=== PATIENT | male | born 1940 | race Caucasian/White ===

== ENCOUNTER 2017-02-16 12:56 | Observation (INO) ==
--- NOTE | 2017-02-16 13:13 | EKG Report ---
Stationary ECG Study [facility] ER Test Date: 02/16/2017 1:04:36 PM Pat Name: SONYA RUFF Department: Room: Gender: M Anesthesiology Tech: Ofelia Cornejo : 1940 Requested by: Hero Schwarz Order Number: [id number] Reading MD: ELPIDIO NAVA Intervals [place] Rate: 72 P: 74 IA: 186 QRS: -62 QRSD: 110 T: 60 QT: 373 QTc: 397 Interpretive Statements SINUS RHYTHM LEFT ANTERIOR FASCICULAR BLOCK Electronically Signed On 02-16-17 13:59:56 CDT by ELPIDIO NAVA [email or web address]
[2017-02-16 13:21] LABS: Basophils % 0.2 % (0.0-0.8); Eosinophils # 0.2 10*3/uL (0.0-0.87); Eosinophils % 3.7 % (0.00-10.9); Hematocrit 39.3 VOL% (42.0-52.0); Immature Granulocytes % 0.5 %; Immature Granulocytes Absolute 0.03 #; Lymphocytes # 1.5 10*3/uL (1.4-4.0); Lymphocytes % 25.8 % (21.2-54.2); Mean Corpuscular HGB Conc 35.6 GM/DL (32-36); Mean Corpuscular Hemoglobin 31 PG (27-34); Mean Corpuscular Volume 87.1 FL (87-102); Mean Platelet Volume 10.2 FL (9.6-12.0); Monocytes # 0.6 10*3/uL (0.11-0.8); Monocytes % 10.1 % (1.7-12.7); Neutrophils # 3.6 10*3/uL (1.4-7.4); Neutrophils % 59.7 % (38.7-73.9); Platelet Count 147 T/CUMM (130-400); Red Blood Count 4.51 MC/CUMM (3.8-5.5); Red Cell Distribution Width 12.5 % (9.3-17.3)
[2017-02-16 13:56] LABS: Alanine Aminotransferase 25 U/L (16-61); Alkaline Phosphatase 68 U/L (45-117); Amylase 21 U/L (25-115); Aspartate Amino Transferase 20 U/L (0-37); Blood Urea Nitrogen 18 MG/DL (7-18); Calcium 9.5 MG/DL (8.5-10.1); Glucose 147 MG/DL (74-106); Osmolality,Calculated 283.4 MOS/KG (273-304); Potassium 4.1 MMOL/L (3.5-5.1); Sodium 140 MMOL/L (136-145); Total Protein 7.7 G/DL (6.4-8.3)
--- NOTE | 2017-02-16 14:01 | XRay Report ---
Exam: XR chest 2V Indication: Midline chest pain Comparison study: Prior chest radiograph 11/21/2011 Findings: The heart, mediastinum, and bony structures are within normal limits. The heart, mediastinum and bony structures are stable from prior. Punctate calcific densities in the hilar regions bilaterally are similar to prior and most compatible with sequela of prior granulomatous disease. Mild eventration of the central right hemidiaphragm is slightly increased from prior. There is no focal consolidation, pneumothorax or pleural effusion identified. Impression: No acute cardiopulmonary process. Evidence of prior granulomatous disease. PROCEDURE INTERPRETED AT [facility] DEPARTMENT OF RADIOLOGY Final Report Signed by: Toño Randall
--- NOTE | 2017-02-16 15:17 | Emergency Department Note ---
Ivy Grace Hilary, am scribing for, and in the presence of, Elissa Pablo DO 14: 49. ISamy Debra, DO, personally performed the services described in this documentation, ascribed by Tere Haynes in my presence, and it is both accurate and complete 517 . Arrival - Arrival Chief Complaint: Chest Pain Stated Complaint: chest pain ED Nursing Triage Note: Pt c/o Chest pain started today. States he has been having some upper abd/epigastric pain but today was up in his chest. Mode of Arrival: Ambulatory Limitations: No Limitations Source: Patient, RN Notes Reviewed - History of Present Illness HPI Narrative: Pt is a 76 y/o male presenting to the ED with c/o chest pain which onset today. Pt states that he has been having epigastrium pain intermittently for a few weeks but today it radiated up into his chest. He reports the pain was severe but it is now resolved. No other complaints or problems stated in the ED. Onset (ago): hour(s) Consistency: intermittent, now resolved Severity: severe Severity scale (1-10): 5 Allergies/Adverse Reactions: Allergies Allergy/AdvReac Type Severity Reaction Status Date / Time midazolam [From Versed] Allergy Unknown/Unable Verified 02/16/17 12:58 to obtain Review of System - Review of System 12 point system: reviewed and no additional remarkable complaints except as stated - Review of System Constitutional: Absent: fever Cardiovascular: Present: chest pain Gastrointestinal: Present: abdominal pain, nausea Medical,Surgical,& Family Hx - Medical History Cardio: History of: CAD, Hypertension Endocrine: History of: Diabetes Mellitus (NIDDM) - Surgical History Cardiac Surgeries: Sugical HX of: Cardiac Catheterization (stent Dr Morris ) Abdominal Surgeries: Surgical HX of: Cholecystectomy - Social History Smoking Status: Never smoker Exam Vital Signs: Vital Signs Temperature 97.9 F 02/16/17 14:30 Pulse Rate 90 02/16/17 14:30 Respiratory Rate 20 02/16/17 14:30 Blood Pressure 151/86 02/16/17 14:30 O2 Sat by Pulse Oximetry 94 L 02/16/17 14:23 - General General appearance: alert, in no apparent distress - Head Head exam: Present: atraumatic, normocephalic - Eye Eye exam: Present: normal appearance, PERRL, EOMI - ENT ENT exam: Present: mucous membranes moist, TM's normal bilaterally. Absent: mucous membranes dry - Neck Neck exam: Present: full ROM, trachea midline. Absent: tenderness - Chest Chest inspection: Present: symmetric chest wall rise. Absent: tenderness - Respiratory Respiratory exam: Present: normal lung sounds bilaterally. Absent: respiratory distress - Cardiovascular Cardiovascular exam: Present: regular rate, normal rhythm, normal heart sounds. Absent: murmur, rubs, gallop - Abdominal Exam Abdominal exam: Present: soft, normal bowel sounds. Absent: distention, tenderness - Extremities Exam Extremities exam: Present: full ROM. Absent: tenderness - Back Exam Back exam: Present: full ROM. Absent: tenderness - Neurological Exam Neurological exam: Present: alert, oriented X3, CN II-XII intact. Absent: motor sensory deficit - Psychiatric Psychiatric exam: Present: normal affect, normal mood - Skin Skin exam: Present: warm, dry, intact, normal color. Absent: rash Course - Reevaluation(s) Reevaluation #1: spoke with Dr Gupta's retail store associate who will admit pt to their service for rule out. pt is stable at this time Results - Labs CBC & BMP: 02/16/17 13:09 02/16/17 13:09 Lab Results: I have reviewed the patients labs Labs: Laboratory Tests 02/16/17 02/16/17 02/16/17 13:09 13:09 13:09 WBC 6.0 RBC 4.51 Hgb 14.0 Hct 39.3 L Plt Count 147 Sodium 140 Potassium 4.1 Chloride 104 Carbon Dioxide 26 BUN 18 Creatinine 1.40 H Glucose 147 H Troponin I < 0.015 Total Protein 7.7 Globulin 3.7 H Albumin/Globulin Ratio 1.0 L Amylase 21 L - EKG EKG results: interpreted by MILAD GALINDO - Diagnostic Findings Procedure: Chest x-ray: report reviewed by me (No acute cardiopulmonary process. Evidence of prior granulomatous disease. ) Disposition Clinical Impression: Chest pain Case discussed with: patient, patient's family Disposition: Still a Patient Condition: Stable Time of Disposition: 16:01
[2017-02-16] MEDS ORDERED: MAGNESIUM SULF RIDER 4 GM in PREMIX 1 EACH IV PRN ×2 (16:01→17:21)
[2017-02-16] MEDS ORDERED: MAGNESIUM SULF RIDER 2 GM in PREMIX 1 EACH IV PRN ×2 (16:01→17:21)
--- NOTE | 2017-02-16 16:55 | Cardiology History & Physical ---
<Mariel Chopra - Last Filed: 02/16/17 16:28> Assessment and Plan - Time spent with patient Time spent with patient: Greater than 30 minutes (1) Atypical chest pain Status: Acute Assessment and plan: SEE PLAN OF CARE LISTED BELOW Current Visit: Yes (2) Coronary artery disease Status: Chronic Assessment and plan: SEE PLAN OF CARE LISTED BELOW Current Visit: Yes (3) Easy fatigability Status: Acute Assessment and plan: SEE PLAN OF CARE LISTED BELOW Current Visit: Yes (4) Abdominal pain Status: Acute Assessment and plan: SEE PLAN OF CARE LISTED BELOW Current Visit: Yes (5) Dyslipidemia Status: Chronic Assessment and plan: SEE PLAN OF CARE LISTED BELOW Current Visit: Yes (6) Hypertension Status: Chronic Assessment and plan: SEE PLAN OF CARE LISTED BELOW Current Visit: Yes (7) 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 Valerio Morris Mr. Ramírez is a 76 year old male with known history of coronary artery disease, routinely followed by Dr. Valerio Morris. Patient has cardiac risk factors significant for hypertension, dyslipidemia and advanced age. Patient has past medical history of BPH and diverticulosis. Patient's most recent heart catheterization was performed January 2009 with PCI to proximal RCA, angioplasty to diagonal and a jet velocity to obtuse marginal. Ejection fraction was 55% at that time. Patient's most recent nuclear stress test was performed March 2015. This was a normal stress perfusion scan with no evidence of inducible ischemia. Normal left ventricular size with normal systolic thickening and normal systolic function. Patient was last seen in the cardiology clinic June 2016. At that time he was having no active complaints. Patient was in his usual state of health until earlier this morning when he developed sharp chest pain while at the stockyard. Tells me that this occurred at rest and had no exertional component. He describes this pain as a sharp pain located midsternally, then radiating to his right chest. Not associated with shortness of breath, nausea, diaphoresis or lightheadedness. Unable to identify any specific alleviating or aggravating factors. He rates his pain an 8 or 9 on a scale of 1-10. Lasted approximately 2 minutes without recurrence. He tells me that this was a different pain than when he underwent PCI to his RCA January 2009. This is not worsened with deep breathing or certain positions and not reproducible to palpation. He also confirms "stomach problems" intermediately over the past several months. He is unable to identify any specific triggers. Does not appear to worsen or get better with meals. No associated nausea or vomiting. Patient's symptomology was very concerning to him given his history of coronary artery disease. For that reason, he presented to the emergency department to be further evaluated. Of note, patient is extremely active person. He continues to work on the [employer]. 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 However, he does report that he tires out more easily and requires more rest breaks than usual over the last several months. Denies dyspnea on exertion, fever, chills, cough, nausea, vomiting, palpitations, orthopnea, PND and lower extremity swelling. Patient was seen and examined in the emergency department. Cardiac biomarkers have been negative 1 and EKG does not reveal any diagnostic changes. Chest x- ray does not reveal any acute cardiopulmonary processes. Patient's chest pain is very atypical in nature. Suspect GI etiology. Patient does have history of coronary artery disease. For this reason, patient will be admitted to cardiology's service and housed on the telemetry unit in order to rule out for myocardial infarction. Will continue to cycle cardiac biomarkers, EKGs and monitor telemetry. Will discuss with Dr. Gupta and await his additional recommendations. ASSESSMENT/PLAN: 1. ATYPICAL CHEST PAIN - Patient's chest pain is very atypical in nature. Suspect GI in nature. Cardiac biomarkers have been negative 1 and EKG does not reveal any diagnostic changes. Patient does have history of coronary artery disease. For this reason, patient will be admitted to cardiology's service and housed on the telemetry unit in order to rule out for myocardial infarction. Will continue to cycle cardiac biomarkers, EKGs and monitor telemetry. Will discuss with Dr. Gupta and await his additional recommendations. 2. HISTORY OF CAD, STATUS POST PCI TO RCA - As above. Continue beta-destiney, lipid-lowering agent and aspirin. 3. HYPERTENSION - Patient's home medications have been reinitiated. Will adjust as needed throughout his hospitalization. 4. DYSLIPIDEMIA - Lipid lowering agent will be continued. Lipid panel ordered. 5. COUGH DUE TO LINDSAY INHIBITOR - Per Dr. Morris's patient is intolerant to LINDSAY inhibitor due to cough. This will be avoided this hospitalization. 6. ABDOMINAL PAIN - Patient confirms abdominal pain intermittently over the past several months. This could very well be contributing to his atypical type chest pain. If patient rules out for myocardial infarction he may benefit from GI workup. I will order a KUB at this time. Will consider CT abdomen if needed. Patient does have history of diverticulosis. 7. EASY FATIGABILITY - Patient reports easy fatigability over the past several months. He has not had a recent echocardiogram in clinic. Most recent ejection fraction noted to be 55% per [facility] 2008. I will order echocardiogram at this time in order to reevaluate his LV function. Home Medications Medication Instructions Recorded Confirmed Type Aspirin 325 mg PO DAILY 02/16/17 02/16/17 History Carvedilol [Coreg] 3.125 mg PO BID 02/16/17 02/16/17 History Niacin 1,000 mg PO QPM 02/16/17 02/16/17 History Omeprazole 20 mg PO DAILY 02/16/17 02/16/17 History Oxybutynin Chloride [Oxybutynin 15 mg PO DAILY 02/16/17 02/16/17 History Chloride ER] Simvastatin 40 mg PO QPM 02/16/17 02/16/17 History Terazosin [Hytrin] 5 mg PO BEDTIME 02/16/17 02/16/17 History amLODIPine [Norvasc] 5 mg PO DAILY 02/16/17 02/16/17 History hydroCHLOROthiazide 12.5 mg PO DAILY 02/16/17 02/16/17 History [Hydrochlorothiazide] metFORMIN [Glucophage] 1,000 mg PO DAILY 02/16/17 02/16/17 History Allergies Allergy/AdvReac Type Severity Reaction Status Date / Time midazolam [From Versed] Allergy Unknown/Unable Verified 02/16/17 12:58 to obtain - Constitutional Constitutional: Present: fatigue, lethargy, weakness. Absent: chills, fever(s) , frequent falls, weight gain, weight loss - Cardiovascular Cardiovascular: Present: chest pain at rest. Absent: chest pain with activity, claudication, diaphoresis, dyspnea, dyspnea on exertion, edema, radiating jaw, neck or arm pain, lightheadedness, orthopnea, palpitations, PND - Respiratory Respiratory: Absent: cough, dyspnea, hemoptysis, dyspnea on exertion, wheezing, snoring, pain on inspiration, change in phlegm color - Gastrointestinal Gastrointestinal: Present: abdominal pain, bloating, cramping, heartburn. Absent: melena, nausea, vomiting - Neurological Neurological: Absent: abnormal gait, abnormal speech, behavioral changes, dizziness, frequent falls, numbness, paresthesias, syncope - Hematologic/Lymphatic Hematologic/Lymphatic: Absent: easy bleeding, easy bruising, lymphadenopathy Medical,Surgical,& Family Hx - Medical History Cardio: History of: CAD, Hypertension Endocrine: History of: Diabetes Mellitus (NIDDM), Dyslipidemia Genitourinary: History of: Prostate Problems (BPH) Gastrointestinal: History of: Diverticulitis/ Diverticulosis, GERD - Surgical History Cardiac Surgeries: Sugical HX of: Cardiac Catheterization (stent Dr Morris ) Abdominal Surgeries: Surgical HX of: Cholecystectomy - Social History Smoking Status: Never smoker Frequency of Alcohol Use: None Type of Drug Use: None Marital Status: Lives With:: Spouse Functional capacity: independent ambulation Cardiology Physical Exam - Constitutional Vitals: Vital Signs Temp Pulse Resp BP Pulse Ox 97.9 F 65 13 134/69 94 L 02/16/17 14:30 02/16/17 15:35 02/16/17 15:35 02/16/17 15:35 02/16/17 14:23 Intake and Output 02/16/17 02/16/17 02/16/17 06:59 14:59 22:59 Other: Weight 203 lb Patient Weight 02/17/17 06:59 Weight 203 lb Exam: General: Appears well with no apparent distress. Pleasant and cooperative. Appears comfortable. HEENT: PERRL, normocephalic, atraumatic. Mucous membranes moist. No jaundice noted. Conjunctiva moist and clear, sclerae anicteric Neck: No JVD/HJR, no thyromegaly or lymphadenopathy noted. No carotid bruit appreciated Cardiac: Regular rate and rhythm. No murmur rub or gallop. Lungs: Clear to auscultation without accessory muscle use to assist the respiratory pattern. Not requiring oxygen. Abdomen: Soft, bowel sounds normoactive. Nontender and nondistended. No abdominal bruit or thrill noted. No masses noted. Extremities: No clubbing, cyanosis noted. No edema noted. Upper extremity pulses 2+. Lower extremity pulses 2+. Capillary refill less than 3 seconds. Skin: No unusual lesions or rashes. No skin breakdown appreciated. Neuro: Awake, alert and oriented 3. Moves all extremities well without hemiparesis or paralysis. No essential tremor is appreciated. Result/EKG - Labs CBC & BMP: 02/16/17 13:09 02/16/17 13:09 Lab Results: I have reviewed the past 24 hour labs Labs: Laboratory Results - last 24 hr 02/16/17 02/16/17 02/16/17 13:09 13:09 13:09 WBC 6.0 RBC 4.51 Hgb 14.0 Hct 39.3 L MCV 87.1 MCH 31 MCHC 35.6 RDW 12.5 Plt Count 147 MPV 10.2 Neut % (Auto) 59.7 Lymph % (Auto) 25.8 Mason % (Auto) 10.1 Eos % (Auto) 3.7 Baso % (Auto) 0.2 Neut # (Auto) 3.6 Lymph # (Auto) 1.5 Mason # (Auto) 0.6 Eos # (Auto) 0.2 Baso # (Auto) 0.0 Immature Gran % 0.5 Nucleated RBC % 0.0 Immature Gran # 0.03 Nucleated RBCs # 0.00 Sodium 140 Potassium 4.1 Chloride 104 Carbon Dioxide 26 Anion Gap 14.1 BUN 18 Creatinine 1.40 H GFR Calculation 59 BUN/Creatinine Ratio 12.00 Glucose 147 H Calculated Osmolality 283.4 Calcium 9.5 Magnesium Total Bilirubin 0.70 AST 20 ALT 25 Alkaline Phosphatase 68 Total Creatine Kinase 116 CK-MB (CK-2) 1.9 Troponin I B-Natriuretic Peptide 78 Total Protein 7.7 Albumin 4.0 Globulin 3.7 H Albumin/Globulin Ratio 1.0 L Amylase 21 L Lipase 02/16/17 02/16/17 13:09 13:09 WBC RBC Hgb Hct MCV MCH MCHC RDW Plt Count MPV Neut % (Auto) Lymph % (Auto) Mason % (Auto) Eos % (Auto) Baso % (Auto) Neut # (Auto) Lymph # (Auto) Mason # (Auto) Eos # (Auto) Baso # (Auto) Immature Gran % Nucleated RBC % Immature Gran # Nucleated RBCs # Sodium Potassium Chloride Carbon Dioxide Anion Gap BUN Creatinine GFR Calculation BUN/Creatinine Ratio Glucose Calculated Osmolality Calcium Magnesium 2.0 Total Bilirubin AST ALT Alkaline Phosphatase Total Creatine Kinase CK-MB (CK-2) Troponin I < 0.015 B-Natriuretic Peptide Total Protein Albumin Globulin Albumin/Globulin Ratio Amylase Lipase 77.0 <GuptaAnish - Last Filed: 02/17/17 09:16> History of Present Illness History of present illness: Mr. Ramírez is a 76 year old male who has a history of remote PCI. He presents with atypical chest pain and it sounds fairly clearly like gastroesophageal reflux disease. My plan is going to be to have him followed up as an outpatient with his primary director of employer services and have a GI evaluation as an outpatient as well. He has been instructed to return if he has further chest discomfort. His EKG is low risk and his troponins are negative. I have discussed in detail the particulars of this case and I have examined the patient and reviewed the patient's chart both current and old. I was directly involved in the patient's evaluation and management and I completely agree with Mariel Chopra NP regarding this patient's evaluation and treatment plan. Cardiology Physical Exam - Constitutional Vitals: Vital Signs Temp Pulse Resp BP Pulse Ox 98.3 F 62 17 133/78 95 02/17/17 08:00 02/17/17 08:00 02/17/17 08:00 02/17/17 08:00 02/17/17 08:00 Intake and Output 02/16/17 02/17/17 02/17/17 23:59 07:59 15:59 Output Total 500 / 500 0 / 0 Balance -500 / -500 0 / 0 Output: Urine 500 / 500 0 / 0 Other: Voiding Method Urinal Weight 92.487 kg 92.079 kg Patient Weight 02/17/17 23:59 Weight 92.079 kg Result/EKG - Labs CBC & BMP: 02/17/17 04:45 02/17/17 04:45 Labs: Laboratory Results - last 24 hr 02/16/17 02/16/17 02/16/17 13:09 13:09 13:09 WBC 6.0 RBC 4.51 Hgb 14.0 Hct 39.3 L MCV 87.1 MCH 31 MCHC 35.6 RDW 12.5 Plt Count 147 MPV 10.2 Neut % (Auto) 59.7 Lymph % (Auto) 25.8 Mason % (Auto) 10.1 Eos % (Auto) 3.7 Baso % (Auto) 0.2 Neut # (Auto) 3.6 Lymph # (Auto) 1.5 Mason # (Auto) 0.6 Eos # (Auto) 0.2 Baso # (Auto) 0.0 Immature Gran % 0.5 Nucleated RBC % 0.0 Immature Gran # 0.03 Nucleated RBCs # 0.00 INR PT Patient/Control Mix Circ Anticoag PTT Sodium 140 Potassium 4.1 Chloride 104 Carbon Dioxide 26 Anion Gap 14.1 BUN 18 Creatinine 1.40 H GFR Calculation 59 BUN/Creatinine Ratio 12.00 Glucose 147 H POC Glucose Calculated Osmolality 283.4 Calcium 9.5 Magnesium Total Bilirubin 0.70 AST 20 ALT 25 Alkaline Phosphatase 68 Total Creatine Kinase 116 CK-MB (CK-2) 1.9 Troponin I B-Natriuretic Peptide 78 Total Protein 7.7 Albumin 4.0 Globulin 3.7 H Albumin/Globulin Ratio 1.0 L Triglycerides Cholesterol LDL Cholesterol VLDL Cholesterol HDL Cholesterol Heart Disease Risk Ratio Amylase 21 L Lipase TSH 3rd Generation 02/16/17 02/16/17 02/16/17 13:09 13:09 19:27 WBC RBC Hgb Hct MCV MCH MCHC RDW Plt Count MPV Neut % (Auto) Lymph % (Auto) Mason % (Auto) Eos % (Auto) Baso % (Auto) Neut # (Auto) Lymph # (Auto) Mason # (Auto) Eos # (Auto) Baso # (Auto) Immature Gran % Nucleated RBC % Immature Gran # Nucleated RBCs # INR PT Patient/Control Mix Circ Anticoag PTT Sodium 141 Potassium 3.6 Chloride 104 Carbon Dioxide 28 Anion Gap 12.6 BUN 17 Creatinine 1.20 GFR Calculation 71 BUN/Creatinine Ratio 14.00 Glucose 163 H POC Glucose Calculated Osmolality 286.3 Calcium 9.5 Magnesium 2.0 Total Bilirubin 0.50 AST 18 ALT 25 Alkaline Phosphatase 66 Total Creatine Kinase 105 CK-MB (CK-2) 1.6 Troponin I < 0.015 B-Natriuretic Peptide Total Protein 6.6 Albumin 3.8 Globulin 2.8 Albumin/Globulin Ratio 1.3 Triglycerides Cholesterol LDL Cholesterol VLDL Cholesterol HDL Cholesterol Heart Disease Risk Ratio Amylase Lipase 77.0 TSH 3rd Generation 02/16/17 02/16/17 02/16/17 19:28 19:28 19:28 WBC 5.6 RBC 4.30 Hgb 13.6 L Hct 37.7 L MCV 87.7 MCH 32 MCHC 36.1 H RDW 12.5 Plt Count 136 MPV 10.4 Neut % (Auto) 58.4 Lymph % (Auto) 26.8 Mason % (Auto) 10.6 Eos % (Auto) 3.8 Baso % (Auto) 0.2 Neut # (Auto) 3.2 Lymph # (Auto) 1.5 Mason # (Auto) 0.6 Eos # (Auto) 0.2 Baso # (Auto) 0.0 Immature Gran % 0.2 Nucleated RBC % 0.0 Immature Gran # 0.01 Nucleated RBCs # 0.00 INR 1.1 PT Patient/Control Mix 11.4 Circ Anticoag PTT 28.0 Sodium Potassium Chloride Carbon Dioxide Anion Gap BUN Creatinine GFR Calculation BUN/Creatinine Ratio Glucose POC Glucose Calculated Osmolality Calcium Magnesium Total Bilirubin AST ALT Alkaline Phosphatase Total Creatine Kinase 107 CK-MB (CK-2) 1.8 Troponin I < 0.015 B-Natriuretic Peptide Total Protein Albumin Globulin Albumin/Globulin Ratio Triglycerides Cholesterol LDL Cholesterol VLDL Cholesterol HDL Cholesterol Heart Disease Risk Ratio Amylase Lipase TSH 3rd Generation 02/16/17 02/17/17 02/17/17 22:11 04:45 04:45 WBC 5.4 RBC 4.09 Hgb 12.7 L Hct 36.1 L MCV 88.3 MCH 31 MCHC 35.2 RDW 12.3 Plt Count 138 MPV 10.9 Neut % (Auto) 55.0 Lymph % (Auto) 28.6 Mason % (Auto) 10.3 Eos % (Auto) 5.2 Baso % (Auto) 0.2 Neut # (Auto) 3.0 Lymph # (Auto) 1.6 Mason # (Auto) 0.6 Eos # (Auto) 0.3 Baso # (Auto) 0.0 Immature Gran % 0.7 Nucleated RBC % 0.0 Immature Gran # 0.04 Nucleated RBCs # 0.00 INR PT Patient/Control Mix Circ Anticoag PTT Sodium 141 Potassium 3.4 L Chloride 105 Carbon Dioxide 27 Anion Gap 12.4 BUN 15 Creatinine 1.00 GFR Calculation 89 BUN/Creatinine Ratio 15.00 Glucose 136 H POC Glucose 184 H Calculated Osmolality 283.3 Calcium 9.0 Magnesium 1.9 Total Bilirubin AST ALT Alkaline Phosphatase Total Creatine Kinase CK-MB (CK-2) Troponin I B-Natriuretic Peptide Total Protein Albumin Globulin Albumin/Globulin Ratio Triglycerides Cholesterol LDL Cholesterol VLDL Cholesterol HDL Cholesterol Heart Disease Risk Ratio Amylase Lipase TSH 3rd Generation 02/17/17 02/17/17 02/17/17 04:45 04:45 05:37 WBC RBC Hgb Hct MCV MCH MCHC RDW Plt Count MPV Neut % (Auto) Lymph % (Auto) Mason % (Auto) Eos % (Auto) Baso % (Auto) Neut # (Auto) Lymph # (Auto) Mason # (Auto) Eos # (Auto) Baso # (Auto) Immature Gran % Nucleated RBC % Immature Gran # Nucleated RBCs # INR PT Patient/Control Mix Circ Anticoag PTT Sodium Potassium Chloride Carbon Dioxide Anion Gap BUN Creatinine GFR Calculation BUN/Creatinine Ratio Glucose POC Glucose Calculated Osmolality Calcium Magnesium Total Bilirubin AST ALT Alkaline Phosphatase Total Creatine Kinase 87 CK-MB (CK-2) 1.1 Troponin I < 0.015 B-Natriuretic Peptide 55 Total Protein Albumin Globulin Albumin/Globulin Ratio Triglycerides 193 H Cholesterol 138 LDL Cholesterol 72.0 VLDL Cholesterol 38.6 HDL Cholesterol 40 Heart Disease Risk Ratio 3.45 Amylase Lipase TSH 3rd Generation 2.250 02/17/17 02/17/17 07:41 08:10 WBC RBC Hgb Hct MCV MCH MCHC RDW Plt Count MPV Neut % (Auto) Lymph % (Auto) Mason % (Auto) Eos % (Auto) Baso % (Auto) Neut # (Auto) Lymph # (Auto) Mason # (Auto) Eos # (Auto) Baso # (Auto) Immature Gran % Nucleated RBC % Immature Gran # Nucleated RBCs # INR PT Patient/Control Mix Circ Anticoag PTT Sodium Potassium Chloride Carbon Dioxide Anion Gap BUN Creatinine GFR Calculation BUN/Creatinine Ratio Glucose POC Glucose 171 H Calculated Osmolality Calcium Magnesium Total Bilirubin AST ALT Alkaline Phosphatase Total Creatine Kinase 88 CK-MB (CK-2) 1.0 Troponin I < 0.015 B-Natriuretic Peptide Total Protein Albumin Globulin Albumin/Globulin Ratio Triglycerides Cholesterol LDL Cholesterol VLDL Cholesterol HDL Cholesterol Heart Disease Risk Ratio Amylase Lipase TSH 3rd Generation
[2017-02-16] MEDS ORDERED: ENOXAPARIN 80 MG/0.8 ML SYRINGE SUBCUT ONE (17:18)
[2017-02-16] MEDS ORDERED: ASPIRIN 325 MG TABLET PO ONE (17:20)
[2017-02-16] MEDS ORDERED: ZALEPLON 5 MG CAPSULE PO PRN (17:21)
[2017-02-16] MEDS ORDERED: ACETAMINOPHEN 325 MG TABLET PO PRN (17:21)
[2017-02-16] MEDS ORDERED: ONDANSETRON 4 MG/2 ML VIAL IV PRN (17:21)
[2017-02-16] MEDS: amLODIPine 5 MG TABLET PO SCH (18:11)
[2017-02-16] MEDS ORDERED: SIMVASTATIN 40 MG TABLET PO SCH (19:00)
[2017-02-16] MEDS ORDERED: NIACIN 500 MG TABLET PO SCH (19:00)
[2017-02-16 19:43] LABS: Basophils % 0.2 % (0.0-0.8); Eosinophils # 0.2 10*3/uL (0.0-0.87); Eosinophils % 3.8 % (0.00-10.9); Hematocrit 37.7 VOL% (42.0-52.0); Hemoglobin 13.6 GM/DL (14.0-18.0); Immature Granulocytes % 0.2 %; Immature Granulocytes Absolute 0.01 #; Lymphocytes # 1.5 10*3/uL (1.4-4.0); Lymphocytes % 26.8 % (21.2-54.2); Mean Corpuscular HGB Conc 36.1 GM/DL (32-36); Mean Corpuscular Hemoglobin 32 PG (27-34); Mean Corpuscular Volume 87.7 FL (87-102); Mean Platelet Volume 10.4 FL (9.6-12.0); Monocytes # 0.6 10*3/uL (0.11-0.8); Monocytes % 10.6 % (1.7-12.7); Neutrophils # 3.2 10*3/uL (1.4-7.4); Neutrophils % 58.4 % (38.7-73.9); Platelet Count 136 T/CUMM (130-400); Red Cell Distribution Width 12.5 % (9.3-17.3); White Blood Count 5.6 T/CUMM (4-12)
--- NOTE | 2017-02-16 19:44 | EKG Report ---
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
[2017-02-16 19:54] LABS: INR 1.1; PT Patient Result 11.4 SECS
[2017-02-16 20:12] LABS: Troponin I Only < 0.015 NG/ML (0.00-0.045)
[2017-02-16 20:13] LABS: Alanine Aminotransferase 25 U/L (16-61); Albumin 3.8 G/DL (3.4-5.0); Alkaline Phosphatase 66 U/L (45-117); Aspartate Amino Transferase 18 U/L (0-37); Calcium 9.5 MG/DL (8.5-10.1); Total Protein 6.6 G/DL (6.4-8.3)
[2017-02-16 20:14] LABS: Blood Urea Nitrogen 17 MG/DL (7-18); Glucose 163 MG/DL (74-106); Osmolality,Calculated 286.3 MOS/KG (273-304); Potassium 3.6 MMOL/L (3.5-5.1); Sodium 141 MMOL/L (136-145)
--- NOTE | 2017-02-16 20:24 | XRay Report ---
KUB. Indication: Generalized abdominal pain. No prior studies. The bowel gas pattern is normal. Surgical clips in the right upper quadrant. Multiple calcifications within the pelvis are likely vascular. Degenerative changes and scoliosis of the spinal column. Impression: No acute abnormality. PROCEDURE INTERPRETED AT [facility] DEPARTMENT OF RADIOLOGY Final Report Signed by: Dr. Mariel Castlilo
[2017-02-16] MEDS ORDERED: TERAZOSIN 5 MG CAPSULE PO SCH (21:00)
[2017-02-16] MEDS: CARVEDILOL 3.125 MG TABLET PO SCH (22:16)
[2017-02-16] MEDS: INSULIN REGULAR 100 UNIT/ML SUBCUT SCH (22:16)
[2017-02-17 05:36] LABS: Basophils % 0.2 % (0.0-0.8); Eosinophils # 0.3 10*3/uL (0.0-0.87); Eosinophils % 5.2 % (0.00-10.9); Hematocrit 36.1 VOL% (42.0-52.0); Hemoglobin 12.7 GM/DL (14.0-18.0); Immature Granulocytes % 0.7 %; Immature Granulocytes Absolute 0.04 #; Lymphocytes # 1.6 10*3/uL (1.4-4.0); Lymphocytes % 28.6 % (21.2-54.2); Mean Corpuscular HGB Conc 35.2 GM/DL (32-36); Mean Corpuscular Hemoglobin 31 PG (27-34); Mean Corpuscular Volume 88.3 FL (87-102); Mean Platelet Volume 10.9 FL (9.6-12.0); Monocytes # 0.6 10*3/uL (0.11-0.8); Monocytes % 10.3 % (1.7-12.7); Platelet Count 138 T/CUMM (130-400); Red Blood Count 4.09 MC/CUMM (3.8-5.5); Red Cell Distribution Width 12.3 % (9.3-17.3); White Blood Count 5.4 T/CUMM (4-12)
[2017-02-17 05:58] LABS: Magnesium 1.9 MG/DL (1.8-2.4); Osmolality,Calculated 283.3 MOS/KG (273-304); Potassium 3.4 MMOL/L (3.5-5.1)
[2017-02-17 06:06] LABS: Risk Ratio 3.45; Thyroid Stimulating Hormone 2.25 uIU/ml (0.358-3.74); VLDL CHOLESTEROL 38.6 MG/DL
[2017-02-17] MEDS ORDERED: POTASSIUM CHLORIDE 20 MEQ TABLET PO PRN (07:14)
[2017-02-17 07:29] LABS: Troponin I Only < 0.015 NG/ML (0.00-0.045)
--- NOTE | 2017-02-17 07:54 | EKG Report ---
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
[2017-02-17 08:14] VITALS: BP 133/78
[2017-02-17 08:56] LABS: Troponin I Only < 0.015 NG/ML (0.00-0.045)
[2017-02-17] MEDS ORDERED: OXYBUTYNIN XL 15 MG TABLET PO SCH (09:00)
[2017-02-17] MEDS ORDERED: ENOXAPARIN 40 MG/0.4 ML SYRINGE SUBCUT SCH (09:00)
[2017-02-17] MEDS ORDERED: PANTOPRAZOLE 40 MG TABLET PO SCH (09:00)
[2017-02-17] MEDS ORDERED: metFORMIN 500 MG TABLET PO SCH (09:00)
[2017-02-17] MEDS ORDERED: ASPIRIN 325 MG TABLET PO SCH (09:00)
[2017-02-17] MEDS ORDERED: hydroCHLOROthiazide 12.5 MG CAPSULE PO SCH (09:00)
[2017-02-17] MEDS: INSULIN REGULAR 100 UNIT/ML SUBCUT SCH (09:13)
[2017-02-17] MEDS: CARVEDILOL 3.125 MG TABLET PO SCH (09:13)
[2017-02-17] MEDS: amLODIPine 5 MG TABLET PO SCH (09:13)
--- NOTE | 2017-02-17 09:44 | Discharge Summary ---
Hospital Course - Hospital Course Hospital Course: Intern Product Marketing Manager: Dr. Valerio Morris Mr. Ramírez is a 76 year old male with known history of coronary artery disease, routinely followed by Dr. Valerio Morris. Patient has cardiac risk factors significant for hypertension, dyslipidemia and advanced age. Patient has past medical history of BPH and diverticulosis. Patient's most recent heart catheterization was performed January 2009 with PCI to proximal RCA, angioplasty to diagonal and a jet velocity to obtuse marginal. Ejection fraction was 55% at that time. Patient's most recent nuclear stress test was performed March 2015. This was a normal stress perfusion scan with no evidence of inducible ischemia. Normal left ventricular size with normal systolic thickening and normal systolic function. Patient was last seen in the cardiology clinic June 2016. At that time he was having no active complaints. Mr. Ramírez presented to [facility] with complaints of atypical chest pain and abdominal pain. He was admitted under cardiology service for rule out of myocardial infarction as he has a history of remote PCI. Cardiac biomarkers negative 4 and EKG did not reveal any diagnostic changes. His symptoms sound most consistent with gastroesophageal reflux disease. He will be discharged home on PPI. KUB was ordered which did not reveal any acute abnormality. Patient is extremely anxious for discharge home. He has opted for outpatient GI evaluation. He will be given an appointment with Dr. Calvert upon discharge. He will also follow-up with his primary cryptologic technician operator/analyst, Dr. Valerio Morris in a couple of weeks. He has been instructed to return if he has any further chest discomfort or problems. He has verbalized understanding of this. - Time spent with patient Time with patient DS: Greater than 30 minutes Diagnosis - Discharge Diagnosis (1) Atypical chest pain Status: Resolved (2) Coronary artery disease Status: Chronic (3) Abdominal pain Status: Acute (4) Dyslipidemia Status: Chronic (5) Hypertension Status: Chronic (6) Cough due to LINDSAY inhibitor Status: Chronic (7) History of diverticulosis Status: Chronic (8) GERD (gastroesophageal reflux disease) Status: Chronic Specialty Discharge - Follow Up or Referrals Follow up with: Hunter Calvert MD [Physician] - 1 Week (Point with Dr. Calvert in 1 week for GI evaluation.) Valerio Morris MD [Physician] - (Appointment with Dr. Morris in 2-3 weeks with EKG.) Discharge Plan - Discharge Data Disposition: Disch To Home/Self Care Condition at Discharge: Stable Discharge Diet: diabetic diet, heart healthy, low fat, low cholesterol, low salt diet Activity: resume usual activities as tolerated Hygiene: no restrictions Weight Bearing at Discharge: weight bear as tolerated Driving: no restrictions Contact your physician if you experience:: fever over 101, Difficulty voiding, Redness or swelling, Nausea/Vomiting, Shortness of breath, Bleeding, pain uncontrolled by pain medications - Discharge Medications New Pantoprazole Tab [Protonix Tab] 40 mg PO BID #60 tablet Continue Terazosin [Hytrin] 5 mg PO BEDTIME Simvastatin 40 mg PO QPM Carvedilol [Coreg] 3.125 mg PO BID metFORMIN [Glucophage] 1,000 mg PO DAILY amLODIPine [Norvasc] 5 mg PO DAILY Aspirin 325 mg PO DAILY Niacin 1,000 mg PO QPM hydroCHLOROthiazide [Hydrochlorothiazide] 12.5 mg PO DAILY Oxybutynin Chloride [Oxybutynin Chloride ER] 15 mg PO DAILY Discontinued Omeprazole 20 mg PO DAILY - Follow Up or Referral - Forms/Instructions Exam - Constitutional Vitals: Period Temp Pulse Resp BP Sys/Betancourt Pulse Ox Last 24 Hr 97.9 F-98.4 F 57-90 13-24 99-151/57-90 92-95 Exam: General: Appears well with no apparent distress. Pleasant and cooperative. Appears comfortable. HEENT: PERRL, normocephalic, atraumatic. Mucous membranes moist. No jaundice noted. Conjunctiva moist and clear, sclerae anicteric Neck: No JVD/HJR, no thyromegaly or lymphadenopathy noted. No carotid bruit appreciated Cardiac: Regular rate and rhythm. No murmur rub or gallop. Lungs: Clear to auscultation without accessory muscle use to assist the respiratory pattern. Not requiring oxygen. Abdomen: Soft, bowel sounds normoactive. Nontender and nondistended. No abdominal bruit or thrill noted. No masses noted. Extremities: No clubbing, cyanosis noted. No edema noted. Upper extremity pulses 2+. Lower extremity pulses 2+. Capillary refill less than 3 seconds. Skin: No unusual lesions or rashes. No skin breakdown appreciated. Neuro: Awake, alert and oriented 3. Moves all extremities well without hemiparesis or paralysis. No essential tremor is appreciated. Discharge Results Procedures and tests throughout hospitalization: Pending Orders 02/17/17 MRSA Surveillence, Inf Control Routine 02/18/17 04:00 BMP w/ Mg [Basic Metabolic Panel w/Mg] IN AM CBC [Comp Blood Count Auto Diff] IN AM 02/19/17 04:00 BMP w/ Mg [Basic Metabolic Panel w/Mg] IN AM CBC [Comp Blood Count Auto Diff] IN AM 02/20/17 04:00 BMP w/ Mg [Basic Metabolic Panel w/Mg] IN AM CBC [Comp Blood Count Auto Diff] IN AM Labs on day of discharge: Labs from last 24 hours 02/17/17 02/17/17 02/17/17 08:10 07:41 05:37 WBC RBC Hgb Hct MCV MCH MCHC RDW Plt Count MPV Neut % (Auto) Lymph % (Auto) [place] % (Auto) Eos % (Auto) Baso % (Auto) Neut # (Auto) Lymph # (Auto) [place] # (Auto) Eos # (Auto) Baso # (Auto) Immature Gran % Nucleated RBC % Immature Gran # Nucleated RBCs # INR PT Patient/Control Mix Circ Anticoag PTT Sodium Potassium Chloride Carbon Dioxide Anion Gap BUN Creatinine GFR Calculation BUN/Creatinine Ratio Glucose POC Glucose 171 H Calculated Osmolality Calcium Magnesium Total Bilirubin AST ALT Alkaline Phosphatase Total Creatine Kinase 88 87 CK-MB (CK-2) 1.0 1.1 Troponin I < 0.015 < 0.015 B-Natriuretic Peptide Total Protein Albumin Globulin Albumin/Globulin Ratio Triglycerides Cholesterol LDL Cholesterol VLDL Cholesterol HDL Cholesterol Heart Disease Risk Ratio Amylase Lipase TSH 3rd Generation 02/17/17 02/17/17 02/17/17 04:45 04:45 04:45 WBC RBC Hgb Hct MCV MCH MCHC RDW Plt Count MPV Neut % (Auto) Lymph % (Auto) [place] % (Auto) Eos % (Auto) Baso % (Auto) Neut # (Auto) Lymph # (Auto) [place] # (Auto) Eos # (Auto) Baso # (Auto) Immature Gran % Nucleated RBC % Immature Gran # Nucleated RBCs # INR PT Patient/Control Mix Circ Anticoag PTT Sodium 141 Potassium 3.4 L Chloride 105 Carbon Dioxide 27 Anion Gap 12.4 BUN 15 Creatinine 1.00 GFR Calculation 89 BUN/Creatinine Ratio 15.00 Glucose 136 H POC Glucose Calculated Osmolality 283.3 Calcium 9.0 Magnesium 1.9 Total Bilirubin AST ALT Alkaline Phosphatase Total Creatine Kinase CK-MB (CK-2) Troponin I B-Natriuretic Peptide 55 Total Protein Albumin Globulin Albumin/Globulin Ratio Triglycerides 193 H Cholesterol 138 LDL Cholesterol 72.0 VLDL Cholesterol 38.6 HDL Cholesterol 40 Heart Disease Risk Ratio 3.45 Amylase Lipase TSH 3rd Generation 2.250 02/17/17 02/16/17 02/16/17 04:45 22:11 19:28 WBC 5.4 RBC 4.09 Hgb 12.7 L Hct 36.1 L MCV 88.3 MCH 31 MCHC 35.2 RDW 12.3 Plt Count 138 MPV 10.9 Neut % (Auto) 55.0 Lymph % (Auto) 28.6 [place] % (Auto) 10.3 Eos % (Auto) 5.2 Baso % (Auto) 0.2 Neut # (Auto) 3.0 Lymph # (Auto) 1.6 [place] # (Auto) 0.6 Eos # (Auto) 0.3 Baso # (Auto) 0.0 Immature Gran % 0.7 Nucleated RBC % 0.0 Immature Gran # 0.04 Nucleated RBCs # 0.00 INR PT Patient/Control Mix Circ Anticoag PTT Sodium Potassium Chloride Carbon Dioxide Anion Gap BUN Creatinine GFR Calculation BUN/Creatinine Ratio Glucose POC Glucose 184 H Calculated Osmolality Calcium Magnesium Total Bilirubin AST ALT Alkaline Phosphatase Total Creatine Kinase 107 CK-MB (CK-2) 1.8 Troponin I < 0.015 B-Natriuretic Peptide Total Protein Albumin Globulin Albumin/Globulin Ratio Triglycerides Cholesterol LDL Cholesterol VLDL Cholesterol HDL Cholesterol Heart Disease Risk Ratio Amylase Lipase TSH 3rd Generation 02/16/17 02/16/17 02/16/17 19:28 19:28 19:27 WBC 5.6 RBC 4.30 Hgb 13.6 L Hct 37.7 L MCV 87.7 MCH 32 MCHC 36.1 H RDW 12.5 Plt Count 136 MPV 10.4 Neut % (Auto) 58.4 Lymph % (Auto) 26.8 [place] % (Auto) 10.6 Eos % (Auto) 3.8 Baso % (Auto) 0.2 Neut # (Auto) 3.2 Lymph # (Auto) 1.5 [place] # (Auto) 0.6 Eos # (Auto) 0.2 Baso # (Auto) 0.0 Immature Gran % 0.2 Nucleated RBC % 0.0 Immature Gran # 0.01 Nucleated RBCs # 0.00 INR 1.1 PT Patient/Control Mix 11.4 Circ Anticoag PTT 28.0 Sodium 141 Potassium 3.6 Chloride 104 Carbon Dioxide 28 Anion Gap 12.6 BUN 17 Creatinine 1.20 GFR Calculation 71 BUN/Creatinine Ratio 14.00 Glucose 163 H POC Glucose Calculated Osmolality 286.3 Calcium 9.5 Magnesium Total Bilirubin 0.50 AST 18 ALT 25 Alkaline Phosphatase 66 Total Creatine Kinase 105 CK-MB (CK-2) 1.6 Troponin I B-Natriuretic Peptide Total Protein 6.6 Albumin 3.8 Globulin 2.8 Albumin/Globulin Ratio 1.3 Triglycerides Cholesterol LDL Cholesterol VLDL Cholesterol HDL Cholesterol Heart Disease Risk Ratio Amylase Lipase TSH 3rd Generation 02/16/17 02/16/17 02/16/17 13:09 13:09 13:09 WBC 6.0 RBC 4.51 Hgb 14.0 Hct 39.3 L MCV 87.1 MCH 31 MCHC 35.6 RDW 12.5 Plt Count 147 MPV 10.2 Neut % (Auto) 59.7 Lymph % (Auto) 25.8 [place] % (Auto) 10.1 Eos % (Auto) 3.7 Baso % (Auto) 0.2 Neut # (Auto) 3.6 Lymph # (Auto) 1.5 [place] # (Auto) 0.6 Eos # (Auto) 0.2 Baso # (Auto) 0.0 Immature Gran % 0.5 Nucleated RBC % 0.0 Immature Gran # 0.03 Nucleated RBCs # 0.00 INR PT Patient/Control Mix Circ Anticoag PTT Sodium Potassium Chloride Carbon Dioxide Anion Gap BUN Creatinine GFR Calculation BUN/Creatinine Ratio Glucose POC Glucose Calculated Osmolality Calcium Magnesium 2.0 Total Bilirubin AST ALT Alkaline Phosphatase Total Creatine Kinase CK-MB (CK-2) Troponin I < 0.015 B-Natriuretic Peptide Total Protein Albumin Globulin Albumin/Globulin Ratio Triglycerides Cholesterol LDL Cholesterol VLDL Cholesterol HDL Cholesterol Heart Disease Risk Ratio Amylase Lipase 77.0 TSH 3rd Generation 02/16/17 02/16/17 13:09 13:09 WBC RBC Hgb Hct MCV MCH MCHC RDW Plt Count MPV Neut % (Auto) Lymph % (Auto) [place] % (Auto) Eos % (Auto) Baso % (Auto) Neut # (Auto) Lymph # (Auto) [place] # (Auto) Eos # (Auto) Baso # (Auto) Immature Gran % Nucleated RBC % Immature Gran # Nucleated RBCs # INR PT Patient/Control Mix Circ Anticoag PTT Sodium 140 Potassium 4.1 Chloride 104 Carbon Dioxide 26 Anion Gap 14.1 BUN 18 Creatinine 1.40 H GFR Calculation 59 BUN/Creatinine Ratio 12.00 Glucose 147 H POC Glucose Calculated Osmolality 283.4 Calcium 9.5 Magnesium Total Bilirubin 0.70 AST 20 ALT 25 Alkaline Phosphatase 68 Total Creatine Kinase 116 CK-MB (CK-2) 1.9 Troponin I B-Natriuretic Peptide 78 Total Protein 7.7 Albumin 4.0 Globulin 3.7 H Albumin/Globulin Ratio 1.0 L Triglycerides Cholesterol LDL Cholesterol VLDL Cholesterol HDL Cholesterol Heart Disease Risk Ratio Amylase 21 L Lipase TSH 3rd Generation - Imaging and Cardiology Cardiology Procedure: report reviewed by Procedure: Chest x-ray: report reviewed by , [facility]er x-ray: report reviewed by DS: Provider Date of admission: 02/16/17 16:01 Primary care physician: . No PCP Attending physician on admission: Anish Gupta MD Discharging clinician: Mariel Chopra NP Expected date of discharge: 02/17/17
--- NOTE | 2017-02-17 10:39 | ECHO Report ---
Pantera Ramírez Exam Date: 02/17/2017 08:49 Referring Physician: Technologist: Age: 76 Ht (in): Wt (lb): Gender: M Exam Location: [facility] Echo Indications: BP: / HR: Rhythm: Sinus Technical Quality: Technically difficult study IMPRESSIONS Diificult Study Normal LV size and ejection fraction EF estimated to be in the 55% range Mild concentric LVH Aortic valve with mild sclerosis without stenosis Trace tricuspid insufficiency Tricuspid insufficiency at velocities at level suggesting systolic PA pressures around 25 mmHg MEASUREMENTS (Male / Female) Normal Values 2D ECHO LV Diastolic Diameter PLAX 3.5 cm 4.2 - 5.9 / 3.9 - 5.3 cm LV Systolic Diameter PLAX 2.8 cm LV Fractional Shortening PLAX 22.3 % IVS Diastolic Thickness 1.7 cm 0.6 - 1.0 / 0.6 - 0.9 cm LVPW Diastolic Thickness 1.4 cm 0.6 - 1.0 / 0.6 - 0.9 cm Aortic Root Diameter 3.1 cm LA Systolic Diameter LX 3.3 cm 3.0 - 4.0 / 2.7 - 3.8 cm DOPPLER TR Peak Velocity 219.0 cm/s TR Peak Gradient 19.2 mmHg FINDINGS Left Ventricle Right Ventricle Right Atrium Left Atrium Mitral Valve Aortic Valve Tricuspid Valve Pulmonic Valve Pericardium Aorta Anish Gupta MD (Electronically Signed) Final Date: 17 February 2017 10:38
== END 2017-02-17 11:07 | disposition home or self-care (01) ==
LOC: N.ED 12:56 → N.EDINP 12:56 → N.ICU 16:26
PROVIDERS: ADMIT Internal Medicine Interventional Cardiology; ATTEND Internal Medicine Interventional Cardiology

== ENCOUNTER 2020-04-11 10:59 | Observation (INO) ==
[2020-04-11] MEDS ORDERED: POTASSIUM CHLORIDE RIDER 10 MEQ in PREMIX 1 EACH IV PRN (11:00)
[2020-04-11] MEDS ORDERED: diphenhydrAMINE CAP 25 MG CAPSULE PO ONE (11:00)
[2020-04-11] MEDS ORDERED: ASPIRIN CHEW 81 MG TABLET PO ONE (11:00)
[2020-04-11] MEDS ORDERED: SODIUM CHLORIDE 0.9% 1,000 ML IV SCH (11:00)
[2020-04-11] MEDS ORDERED: MAGNESIUM SULF RIDER 2 GM in PREMIX 1 EACH IV PRN (11:00)
[2020-04-11] MEDS ORDERED: diphenhydrAMINE CAP 25 MG CAPSULE ONE (13:07)
[2020-04-11] MEDS ORDERED: LIDOCAINE 1% 20 ML VIAL ONE (13:37)
[2020-04-11] MEDS ORDERED: fentaNYL 100 MCG/2 ML VIAL ONE (15:01)
[2020-04-11] MEDS ORDERED: HEPARIN 5,000 UNIT/1 ML VIAL ONE (15:28)
[2020-04-11] MEDS ORDERED: NITROGLYCERIN SL 0.4 MG TABLET SL PRN (18:16)
[2020-04-11] MEDS ORDERED: GLUCAGON 1 MG VIAL IM PRN (18:20)
[2020-04-11] MEDS ORDERED: DEXTROSE 50% 25 GM/50 ML VIAL IV PRN (18:20)
[2020-04-11] MEDS ORDERED: LACTULOSE 20 GM/30 ML UDCUP PO PRN (18:20)
[2020-04-11] MEDS: ONDANSETRON 4 MG/2 ML VIAL IV PRN (20:48)
[2020-04-11] MEDS ORDERED: ATORVASTATIN 10 MG TABLET PO SCH (21:00)
[2020-04-11] MEDS: TERAZOSIN 5 MG CAPSULE PO SCH (21:47)
[2020-04-11] MEDS: GABAPENTIN 100 MG CAPSULE PO SCH (21:47)
[2020-04-11] MEDS: carvediloL 3.125 MG TABLET PO SCH (21:47)
[2020-04-11] MEDS: INSULIN REGULAR 100 UNIT/ML SUBCUT SCH (21:47)
[2020-04-11] MEDS: ISOSORBIDE MONONITRATE 20 MG TABLET PO SCH (21:47)
[2020-04-11] MEDS: DICLOFENAC SODIUM 50 MG TABLET PO SCH (21:48)
[2020-04-11] MEDS: NIACIN 500 MG TABLET PO SCH (21:48)
[2020-04-12] MEDS ORDERED: PROMETHAZINE INJ 12.5 MG in SODIUM CHLORIDE 0.9% 50 ML IV PRN (00:32)
[2020-04-12] MEDS ORDERED: ALUM/MAG/SIMETH/LIDO VISC 1:1 30 ML BOTTLE PO ONE (01:30)
[2020-04-12] MEDS ORDERED: MORPHINE 4 MG/1 ML VIAL IV SCH (04:30)
[2020-04-12 04:42] LABS: Basophils % 0.2 % (0.0-0.8); Eosinophils % 0.9 % (0.00-10.9); Hematocrit 39.9 VOL% (42.0-52.0); Hemoglobin 13.6 GM/DL (14.0-18.0); Immature Granulocytes % 0.6 %; Immature Granulocytes Absolute 0.03 #; Lymphocytes # 0.9 10*3/uL (1.4-4.0); Lymphocytes % 18.9 % (21.2-54.2); Mean Corpuscular HGB Conc 34.1 GM/DL (32-36); Mean Corpuscular Volume 93.9 FL (87-102); Monocytes % 7.7 % (1.7-12.7); Neutrophils % 71.7 % (38.7-73.9); Platelet Count 142 T/CUMM (130-400); Red Blood Count 4.25 MC/CUMM (3.8-5.5); Red Cell Distribution Width 12.2 % (9.3-17.3); White Blood Count 4.7 T/CUMM (4-12)
[2020-04-12 05:00] LABS: Albumin 3.5 G/DL (3.4-5.0); Osmolality,Calculated 276.5 MOS/KG (273-304); Total Protein 6.6 G/DL (6.4-8.3)
[2020-04-12 05:05] LABS: Microcytosis 1+; Platelet Estimate Adequate
[2020-04-12] MEDS ORDERED: MORPHINE 4 MG/1 ML VIAL IV PRN (06:00)
[2020-04-12] MEDS: INSULIN REGULAR 100 UNIT/ML SUBCUT SCH ×4 (08:01→20:58)
[2020-04-12] MEDS ORDERED: PANTOPRAZOLE 40 MG TABLET PO SCH (09:00)
[2020-04-12] MEDS: ONDANSETRON 4 MG/2 ML VIAL IV PRN (09:06)
[2020-04-12] MEDS: glipiZIDE 10 MG TABLET PO SCH (09:10)
[2020-04-12] MEDS: DICLOFENAC SODIUM 50 MG TABLET PO SCH ×2 (09:10→20:56)
[2020-04-12] MEDS: carvediloL 3.125 MG TABLET PO SCH (09:10)
[2020-04-12] MEDS: ASPIRIN 325 MG TABLET PO SCH (09:10)
[2020-04-12] MEDS: ISOSORBIDE MONONITRATE 20 MG TABLET PO SCH ×2 (09:10→21:02)
[2020-04-12] MEDS: OXYBUTYNIN XL 15 MG TABLET PO SCH (09:10)
[2020-04-12] MEDS: GABAPENTIN 100 MG CAPSULE PO SCH ×3 (09:10→20:58)
[2020-04-12] MEDS: amLODIPine 5 MG TABLET PO SCH (09:10)
[2020-04-12] MEDS: hydroCHLOROthiazide 12.5 MG CAPSULE PO SCH (09:10)
[2020-04-12] MEDS ORDERED: METOCLOPRAMIDE 10 MG/2 ML VIAL IV ONE (09:44)
[2020-04-12] MEDS ORDERED: ATORVASTATIN 40 MG TABLET PO SCH (12:03)
[2020-04-12] MEDS ORDERED: carvediloL 3.125 MG TABLET PO ONE (12:04)
[2020-04-12] MEDS ORDERED: METOCLOPRAMIDE 5 MG TABLET PO PRN (14:41)
[2020-04-12] MEDS: NIACIN 500 MG TABLET PO SCH (20:56)
[2020-04-12] MEDS: PANTOPRAZOLE 40 MG TABLET PO SCH (20:58)
[2020-04-12] MEDS: TERAZOSIN 5 MG CAPSULE PO SCH (21:02)
[2020-04-12] MEDS: carvediloL 6.25 MG TABLET PO SCH (21:02)
[2020-04-13 07:13] LABS: Basophils % 0.4 % (0.0-0.8); Eosinophils # 0.2 10*3/uL (0.0-0.87); Eosinophils % 4.7 % (0.00-10.9); Hematocrit 34.5 VOL% (42.0-52.0); Hemoglobin 11.7 GM/DL (14.0-18.0); Immature Granulocytes % 0.6 %; Immature Granulocytes Absolute 0.03 #; Lymphocytes # 1.5 10*3/uL (1.4-4.0); Lymphocytes % 30.5 % (21.2-54.2); Mean Corpuscular HGB Conc 33.9 GM/DL (32-36); Mean Platelet Volume 10.3 FL (9.6-12.0); Monocytes % 10.2 % (1.7-12.7); Neutrophils % 53.6 % (38.7-73.9); Platelet Count 121 T/CUMM (130-400); Red Blood Count 3.67 MC/CUMM (3.8-5.5); Red Cell Distribution Width 12.7 % (9.3-17.3); White Blood Count 4.9 T/CUMM (4-12)
[2020-04-13 07:50] LABS: Calcium 8.5 MG/DL (8.5-10.1); Osmolality,Calculated 278.7 MOS/KG (273-304)
[2020-04-13] MEDS: INSULIN REGULAR 100 UNIT/ML SUBCUT SCH (08:18)
[2020-04-13] MEDS: ISOSORBIDE MONONITRATE 20 MG TABLET PO SCH (09:23)
[2020-04-13] MEDS: glipiZIDE 10 MG TABLET PO SCH (09:24)
[2020-04-13] MEDS: PANTOPRAZOLE 40 MG TABLET PO SCH (09:24)
[2020-04-13] MEDS: amLODIPine 5 MG TABLET PO SCH (09:24)
[2020-04-13] MEDS: hydroCHLOROthiazide 12.5 MG CAPSULE PO SCH (09:24)
[2020-04-13] MEDS: ASPIRIN 325 MG TABLET PO SCH (09:24)
[2020-04-13] MEDS: GABAPENTIN 100 MG CAPSULE PO SCH (09:24)
[2020-04-13] MEDS: OXYBUTYNIN XL 15 MG TABLET PO SCH (09:24)
[2020-04-13] MEDS: DICLOFENAC SODIUM 50 MG TABLET PO SCH (09:25)
[2020-04-13] MEDS: carvediloL 6.25 MG TABLET PO SCH (09:25)
[2020-04-13] MEDS ORDERED: carvediloL 3.125 MG TABLET PO SCH (09:55)
[2020-04-13 11:04] VITALS: BP 117/57
== END 2020-04-13 11:37 | disposition home or self-care (01) ==
LOC: N.CL 10:59 → N.TELES 10:59 → N.CL 11:02 → N.TELES 16:25
PROVIDERS: ADMIT Internal Medicine Cardiovascular Disease; ATTEND Internal Medicine Cardiovascular Disease

== ENCOUNTER 2020-05-01 07:00 | Inpatient (IN) ==
[2020-05-01] MEDS ORDERED: SODIUM CHLORIDE 0.9% 1,000 ML IV SCH (14:00)
[2020-05-01] MEDS ORDERED: GLUCAGON 1 MG VIAL IM PRN (14:00)
[2020-05-01] MEDS ORDERED: DEXTROSE 50% 25 GM/50 ML VIAL IV PRN (14:00)
[2020-05-01] MEDS: INSULIN REGULAR 100 UNIT/ML SUBCUT SCH ×3 (14:13→21:45)
[2020-05-01 14:22] LABS: ABG Base Excess -2.3 MMOL/L (-2.5-2.5); ABG HCO3 22.1 MMOL/L (20-26); ABG PCO2 36.9 MM HG (35-48); ABG PH 7.395 (7.35-7.45); ABG PO2 80.4 MM HG (80-95); ABG TCO2 23.2 MMOL/L (23-27); Allen Test Positive; Pt O2 Delivery Device Room Air
[2020-05-01] MEDS ORDERED: NITROGLYCERIN SL 0.4 MG TABLET SL PRN (15:42)
[2020-05-01 15:55] LABS: Basophils % 0.2 % (0.0-0.8); Eosinophils # 0.2 10*3/uL (0.0-0.87); Eosinophils % 3.7 % (0.00-10.9); Hemoglobin 12.3 GM/DL (14.0-18.0); Immature Granulocytes % 0.7 %; Immature Granulocytes Absolute 0.03 #; Lymphocytes # 1.3 10*3/uL (1.4-4.0); Lymphocytes % 29.5 % (21.2-54.2); Mean Corpuscular HGB Conc 34.2 GM/DL (32-36); Monocytes % 11.2 % (1.7-12.7); Neutrophils % 54.7 % (38.7-73.9); Platelet Count 124 T/CUMM (130-400); Red Blood Count 3.83 MC/CUMM (3.8-5.5); Red Cell Distribution Width 12.4 % (9.3-17.3); White Blood Count 4.4 T/CUMM (4-12)
[2020-05-01 16:17] LABS: Hypochromasia 1+; Platelet Estimate Adequate
[2020-05-01 16:18] LABS: Albumin 3.6 G/DL (3.4-5.0); Bilirubin,Total 0.5 MG/DL (0.2-1.0); Calcium 8.9 MG/DL (8.5-10.1); Osmolality,Calculated 285.3 MOS/KG (273-304); Total Protein 6.7 G/DL (6.4-8.3)
[2020-05-01] MEDS: CHLORHEXIDINE 4% SOLN 118 ML BOTTLE TOP SCH ×2 (17:00→21:45)
[2020-05-01] MEDS ORDERED: NIACIN 500 MG TABLET PO SCH (21:00)
[2020-05-01] MEDS ORDERED: TERAZOSIN 10 MG CAPSULE PO SCH (21:00)
[2020-05-01] MEDS ORDERED: ATORVASTATIN 40 MG TABLET PO SCH (21:00)
[2020-05-01] MEDS ORDERED: LORATADINE 10 MG TABLET PO SCH (21:00)
[2020-05-01] MEDS: ISOSORBIDE MONONITRATE 20 MG TABLET PO SCH (21:43)
[2020-05-01] MEDS: CHLORHEXIDINE 0.12% ORAL RINSE 60 ML BOTTLE SWISH/SPIT SCH (21:43)
[2020-05-01] MEDS: carvediloL 3.125 MG TABLET PO SCH (21:44)
[2020-05-01] MEDS: ASCORBIC ACID 500 MG TABLET PO SCH (21:44)
[2020-05-02] MEDS ORDERED: VANCOMYCIN 500 MG VIAL ONE (04:22)
[2020-05-02] MEDS ORDERED: PAPAVERINE 60 MG/2 ML VIAL ONE (04:22)
[2020-05-02] MEDS ORDERED: VANCOMYCIN 1,000 MG VIAL ONE (04:22)
[2020-05-02] MEDS ORDERED: CEFUROXIME INJ 1,500 MG in SYRINGE 1 EACH IV ONE (05:00)
[2020-05-02] MEDS ORDERED: SODIUM CHLORIDE 0.9% 1,000 ML IV SCH (06:00)
[2020-05-02] MEDS ORDERED: LORazepam 2 MG/1 ML VIAL ONE ×3 (06:12→08:15)
[2020-05-02] MEDS ORDERED: DEXMEDETOMIDINE 200 MCG/2 ML VIAL ONE (06:14)
[2020-05-02] MEDS ORDERED: SUFentanil 250 MCG/5 ML AMP ONE (06:14)
[2020-05-02] MEDS ORDERED: ePHEDrine 50 MG/ML VIAL ONE (06:26)
[2020-05-02] MEDS ORDERED: CALCIUM CHLORIDE 1,000 MG/10 ML SYRINGE IV ONE (07:10)
[2020-05-02] MEDS ORDERED: POTASSIUM CHLORIDE RIDER 100 ML IV ONE (07:10)
[2020-05-02] MEDS ORDERED: SODIUM BICARBONATE 50 MEQ/50 ML VIAL IV ONE ×2 (07:10→10:32)
[2020-05-02] MEDS ORDERED: ALBUMIN 5% 12.5 GM/250 ML VIAL IV ONE ×2 (07:11→11:28)
[2020-05-02] MEDS ORDERED: EPINEPHrine 1 MG/10 ML SYRINGE ONE (07:11)
[2020-05-02] MEDS ORDERED: ATROPINE 1 MG/10 ML SYRINGE ONE (07:12)
[2020-05-02 07:38] LABS: ABG Base Excess -0.7 MMOL/L (-2.5-2.5); ABG HCO3 23.9 MMOL/L (20-26); ABG PCO2 36.5 MM HG (35-48); ABG PH 7.417 (7.35-7.45); ABG TCO2 20.9 MMOL/L (23-27); Glucose Heart Surgery 101 MG/DL (74-106); Hematocrit Heart Surgery 35.2 PERCENT (42-52); Hemoglobin Heart Surgery 11.4 G/DL (14.0-18.0); Ionized Calcium Arterial 1.19 MMOL/L (1.21-1.46); PCO2 Patient Temp Arterial 36.5 MMHG; PH Patient Temp Arterial 7.417; Patient Temperature 37 CELCIUS; Potassium Heart/CVR 3.8 MMOL/L (3.5-5.1); Sodium Heart/CVR 142 MMOL/L (135-145)
[2020-05-02] MEDS ORDERED: LORazepam 2 MG/1 ML VIAL IV ONE (07:57)
[2020-05-02 08:00] LABS: Bilirubin,Urine Negative (Negative); Blood, Urine Negative (Negative); Glucose,Urine (UA) Negative (Negative); Ketones,Urine Negative (Negative); Nitrite,Urine Negative (Negative); Protein,Urine Negative; RBC,Urine 1 /HPF (0-4); Urine Appearance CLEAR (Clear); Urine Color Colorless (Yellow); Urine Specific Gravity 1.004 (1.001-1.035); Urine Urobilinogen < 2.0 EU/DL (0.2-1.0); WBC,Urine 1 /HPF (0-6)
[2020-05-02] MEDS: INSULIN REGULAR 100 UNIT/ML SUBCUT SCH (08:41)
[2020-05-02] MEDS: ASCORBIC ACID 500 MG TABLET PO SCH (08:42)
[2020-05-02] MEDS: ISOSORBIDE MONONITRATE 20 MG TABLET PO SCH (08:42)
[2020-05-02] MEDS: carvediloL 3.125 MG TABLET PO SCH (08:42)
[2020-05-02] MEDS: CHLORHEXIDINE 4% SOLN 118 ML BOTTLE TOP SCH (08:42)
[2020-05-02] MEDS: CHLORHEXIDINE 0.12% ORAL RINSE 60 ML BOTTLE SWISH/SPIT SCH ×2 (08:42→21:16)
[2020-05-02] MEDS ORDERED: amLODIPine 2.5 MG TABLET PO SCH (09:00)
[2020-05-02] MEDS ORDERED: hydroCHLOROthiazide 12.5 MG CAPSULE PO SCH (09:00)
[2020-05-02] MEDS ORDERED: ASPIRIN 325 MG TABLET PO SCH (09:00)
[2020-05-02] MEDS ORDERED: PANTOPRAZOLE 40 MG TABLET PO SCH (09:00)
[2020-05-02 09:08] LABS: Hematocrit Heart Surgery 24.9 PERCENT (42-52); PCO2 Patient Temp Venous 30.2 MM HG; PH Patient Temp Venous 7.488; PO2 Patient Temp Venous 40.5 MM HG; Potassium Heart/CVR 4.9 MMOL/L (3.5-5.1); VBG Base Excess 0.1 MEQ/L (0-4); VBG HCO3 24.3 MEQ/L (24-28); VBG Oxygen Saturation 86.1 %; VBG PCO2 34.9 MMHG (41-51); VBG PH 7.443; VBG PO2 49.7 MMHG (17-40)
[2020-05-02 09:36] LABS: Hematocrit Heart Surgery 27.3 PERCENT (42-52); Hemoglobin Heart Surgery 8.8 G/DL (14.0-18.0); PCO2 Patient Temp Venous 30.7 MM HG; PH Patient Temp Venous 7.487; PO2 Patient Temp Venous 41.5 MM HG; Potassium Heart/CVR 5.4 MMOL/L (3.5-5.1); VBG Base Excess 0.4 MEQ/L (0-4); VBG HCO3 24.6 MEQ/L (24-28); VBG Oxygen Saturation 86.5 %; VBG PCO2 35.5 MMHG (41-51); VBG PH 7.442; VBG PO2 50.9 MMHG (17-40)
[2020-05-02] MEDS ORDERED: SUFentanil 50 MCG/ML AMP ONE (09:53)
[2020-05-02 10:29] LABS: ABG Base Excess -1.4 MMOL/L (-2.5-2.5); ABG HCO3 23.2 MMOL/L (20-26); ABG Oxygen Saturation 99.8 % (95-100); ABG PCO2 33.4 MM HG (35-48); ABG PH 7.432 (7.35-7.45); ABG TCO2 20.4 MMOL/L (23-27); Glucose Heart Surgery 206 MG/DL (74-106); Hematocrit Heart Surgery 29.4 PERCENT (42-52); Hemoglobin Heart Surgery 9.5 G/DL (14.0-18.0); Ionized Calcium Arterial 1.37 MMOL/L (1.21-1.46); PCO2 Patient Temp Arterial 33.4 MMHG; PH Patient Temp Arterial 7.432; Patient Temperature 37 CELCIUS; Potassium Heart/CVR 4.4 MMOL/L (3.5-5.1); Sodium Heart/CVR 137 MMOL/L (135-145)
[2020-05-02] MEDS ORDERED: LIDOCAINE 2% 5 ML VIAL ONE ×2 (10:32→11:27)
[2020-05-02] MEDS ORDERED: DEXTROSE 5% KCL 20 MEQ 20 MEQ/1,000 ML BAG IV ONE (10:32)
[2020-05-02] MEDS ORDERED: methylPREDNISolone SOD SUC 1,000 MG/8 ML VIAL ONE (10:32)
[2020-05-02] MEDS ORDERED: HEPARIN 10,000 UNIT/10 ML VIAL ONE (10:32)
[2020-05-02] MEDS ORDERED: ALBUMIN 25% 25 GM/100 ML VIAL IV ONE (10:32)
[2020-05-02] MEDS ORDERED: MAGNESIUM SULFATE 5 GM/10 ML VIAL IV ONE (10:32)
[2020-05-02] MEDS ORDERED: MANNITOL 100 GM/500 ML BAG IV ONE (10:32)
[2020-05-02] MEDS ORDERED: PROTAMINE SULFATE 250 MG/25 ML VIAL IV ONE (10:32)
[2020-05-02] MEDS ORDERED: FUROSEMIDE 20 MG/2 ML VIAL ONE (10:33)
[2020-05-02] MEDS ORDERED: PROTAMINE SULFATE 50 MG/5 ML VIAL IV ONE ×3 (10:33→12:53)
[2020-05-02] MEDS ORDERED: MORPHINE 4 MG/1 ML VIAL IV PRN (10:59)
[2020-05-02] MEDS ORDERED: INSULIN REGULAR 100 UNIT/ML IV PRN (10:59)
[2020-05-02] MEDS ORDERED: CALCIUM CHLORIDE 1,000 MG/10 ML SYRINGE IV PRN (10:59)
[2020-05-02] MEDS ORDERED: ACETAMINOPHEN 650 MG SUPP RECTAL PRN (10:59)
[2020-05-02] MEDS ORDERED: NITROPRUSSIDE 100 MG in DEXTROSE 5% 250 ML IV PRN (10:59)
[2020-05-02] MEDS ORDERED: POTASSIUM CHLORIDE RIDER 10 MEQ in PREMIX 1 EACH IV PRN (10:59)
[2020-05-02] MEDS ORDERED: MAGNESIUM SULF RIDER 4 GM in PREMIX 1 EACH IV PRN (10:59)
[2020-05-02] MEDS ORDERED: DEXTROSE 50% 25 GM/50 ML VIAL IV PRN ×2 (10:59)
[2020-05-02] MEDS ORDERED: INSULIN REGULAR 100 UNIT/ML IV ONE (10:59)
[2020-05-02] MEDS ORDERED: VECURONIUM 10 MG VIAL IV PRN ×2 (10:59)
[2020-05-02] MEDS ORDERED: CHLORHEXIDINE 4% SOLN 118 ML BOTTLE TOP PRN (10:59)
[2020-05-02] MEDS ORDERED: ONDANSETRON 4 MG/2 ML VIAL IV PRN (10:59)
[2020-05-02] MEDS ORDERED: MAGNESIUM SULF RIDER 2 GM in PREMIX 1 EACH IV PRN (10:59)
[2020-05-02] MEDS ORDERED: INSULIN REGULAR DRIP 100 ML IV SCH (11:00)
[2020-05-02] MEDS ORDERED: propofoL 200 MG/20 ML VIAL IV ONE (11:27)
[2020-05-02] MEDS ORDERED: CALCIUM CHLORIDE 1,000 MG/10 ML VIAL IV ONE (11:27)
[2020-05-02] MEDS ORDERED: NITROGLYCERIN DRIP 50 MG/250 ML BOTTLE IV ONE (11:28)
[2020-05-02] MEDS ORDERED: PHENYLEPHRINE DRIP 20 MG/250 ML PREMIX IV ONE (11:28)
[2020-05-02] MEDS ORDERED: SODIUM CHLORIDE 0.9% 200 ML IV ONE (11:28)
[2020-05-02] MEDS ORDERED: SODIUM CHLORIDE 0.9% 250 ML IV ONE (11:28)
[2020-05-02] MEDS ORDERED: SODIUM CHLORIDE 0.9% 1,000 ML IV ONE (11:28)
[2020-05-02] MEDS ORDERED: ETOMIDATE 40 MG/20 ML VIAL IV ONE (11:28)
[2020-05-02] MEDS ORDERED: SEVOFLURANE 1 UNIT/15 MINUTE INH ONE (11:28)
[2020-05-02] MEDS ORDERED: AMINOCAPROIC ACID 5,000 MG/20 ML VIAL ONE (11:28)
[2020-05-02] MEDS ORDERED: PHENYLEPHRINE 1 MG/10 ML SYRINGE IV ONE (11:28)
[2020-05-02] MEDS ORDERED: HEPARIN/NACL 0.9% 2 UNITS/ML 500 ML IV ONE (11:28)
[2020-05-02] MEDS: SODIUM CHLORIDE 0.45% 1,000 ML IV SCH ×2 (11:30)
[2020-05-02] MEDS: ALBUMIN 5% 12.5 GM in PREMIX 1 EACH IV PRN ×3 (11:40→15:10)
[2020-05-02] MEDS ORDERED: NITROPRUSSIDE 50 MG/2 ML VIAL ONE (11:42)
[2020-05-02] MEDS ORDERED: LACTATED RINGERS 1,000 ML IV ONE ×2 (12:00→13:00)
[2020-05-02 12:02] LABS: ABG Base Excess -2.4 MMOL/L (-2.5-2.5); ABG HCO3 22.4 MMOL/L (20-26); ABG Oxygen Saturation 98.9 % (95-100); ABG PCO2 38.2 MM HG (35-48); ABG PH 7.377 (7.35-7.45); ABG TCO2 20.6 MMOL/L (23-27); Glucose Heart Surgery 178 MG/DL (74-106); Hematocrit Heart Surgery 29.5 PERCENT (42-52); Hemoglobin Heart Surgery 9.5 G/DL (14.0-18.0); Potassium Heart/CVR 3.3 MMOL/L (3.5-5.1)
[2020-05-02 12:07] LABS: Basophils % 0.1 % (0.0-0.8); Eosinophils # 0.1 10*3/uL (0.0-0.87); Eosinophils % 0.8 % (0.00-10.9); Hematocrit 26.5 VOL% (42.0-52.0); Hemoglobin 9.3 GM/DL (14.0-18.0); Immature Granulocytes % 0.9 %; Immature Granulocytes Absolute 0.07 #; Lymphocytes # 0.7 10*3/uL (1.4-4.0); Mean Corpuscular HGB Conc 35.1 GM/DL (32-36); Mean Platelet Volume 10.5 FL (9.6-12.0); Monocytes % 4.5 % (1.7-12.7); Neutrophils % 84.7 % (38.7-73.9); Platelet Count 84 T/CUMM (130-400); Red Blood Count 2.85 MC/CUMM (3.8-5.5); Red Cell Distribution Width 12.4 % (9.3-17.3); White Blood Count 7.8 T/CUMM (4-12)
[2020-05-02 12:16] LABS: INR 1.3; PT Patient Result 13.7 SECS (9.8-11.9); Partial Thromboplastin Time 27.7 SECS (23.9-33.8)
[2020-05-02] MEDS: POTASSIUM CHLORIDE RIDER 20 MEQ in PREMIX 1 EACH IV PRN ×3 (12:16→14:54)
[2020-05-02 12:37] LABS: CKMB % 7.6 %
[2020-05-02 12:38] LABS: Troponin I 5.1 NG/ML (0.00-0.045)
[2020-05-02 12:43] LABS: Albumin 3.6 G/DL (3.4-5.0); Anisocytosis Slight; Bilirubin,Total 1.4 MG/DL (0.2-1.0); Calcium 8.4 MG/DL (8.5-10.1); Osmolality,Calculated 289.1 MOS/KG (273-304); Platelet Estimate Decreased; Total Protein 5.5 G/DL (6.4-8.3)
[2020-05-02] MEDS: LACTATED RINGERS 250 ML IV PRN ×2 (14:15→15:00)
[2020-05-02 14:22] LABS: ABG HCO3 22.7 MMOL/L (20-26); ABG Oxygen Saturation 98.3 % (95-100); ABG PH 7.369 (7.35-7.45); ABG TCO2 20.5 MMOL/L (23-27); Glucose Heart Surgery 139 MG/DL (74-106); Potassium Heart/CVR 3.6 MMOL/L (3.5-5.1)
[2020-05-02] MEDS: PHENYLEPHRINE DRIP 40 MG/250 ML PREMIX IV PRN (15:15)
[2020-05-02 17:34] LABS: ABG Base Excess -2.3 MMOL/L (-2.5-2.5); ABG HCO3 22.9 MMOL/L (20-26); ABG Oxygen Saturation 96.2 % (95-100); ABG PCO2 41.1 MM HG (35-48); ABG PH 7.364 (7.35-7.45); ABG PO2 90.8 MM HG (80-95); ABG TCO2 24.2 MMOL/L (23-27); Glucose Heart Surgery 116 MG/DL (74-106); Potassium Heart/CVR 4.2 MMOL/L (3.5-5.1)
[2020-05-02] MEDS: CEFUROXIME INJ 1,500 MG in SYRINGE 1 EACH IV SCH (19:01)
[2020-05-02 19:06] LABS: CKMB % 5.7 %
[2020-05-02 19:08] LABS: Troponin I 5.95 NG/ML (0.00-0.045)
[2020-05-03] MEDS ORDERED: FUROSEMIDE 40 MG/4 ML VIAL IV ONE (03:02)
[2020-05-03] MEDS: MORPHINE 10 MG/1 ML VIAL IV PRN ×2 (04:00→17:44)
[2020-05-03 04:44] LABS: ABG Base Excess -1.7 MMOL/L (-2.5-2.5); ABG HCO3 22.9 MMOL/L (20-26); ABG Oxygen Saturation 94.7 % (95-100); ABG PCO2 43.4 MM HG (35-48); ABG PO2 75.2 MM HG (80-95); ABG TCO2 21.5 MMOL/L (23-27); Basophils % 0.1 % (0.0-0.8); Glucose Heart Surgery 155 MG/DL (74-106); Hematocrit 33.5 VOL% (42.0-52.0); Hematocrit Heart Surgery 36.2 PERCENT (42-52); Hemoglobin Heart Surgery 11.7 G/DL (14.0-18.0); Immature Granulocytes % 0.7 %; Immature Granulocytes Absolute 0.12 #; Lymphocytes # 0.7 10*3/uL (1.4-4.0); Lymphocytes % 4.2 % (21.2-54.2); Mean Corpuscular HGB Conc 34.6 GM/DL (32-36); Mean Corpuscular Volume 92.3 FL (87-102); Mean Platelet Volume 10.7 FL (9.6-12.0); Monocytes % 3.4 % (1.7-12.7); Neutrophils % 91.6 % (38.7-73.9); Platelet Count 104 T/CUMM (130-400); Red Blood Count 3.63 MC/CUMM (3.8-5.5); Red Cell Distribution Width 13.4 % (9.3-17.3); White Blood Count 16.9 T/CUMM (4-12)
[2020-05-03 04:45] LABS: Hemoglobin 11.6 GM/DL (14.0-18.0)
[2020-05-03 05:20] LABS: CKMB % 5.6 %
[2020-05-03 05:21] LABS: Troponin I 3.68 NG/ML (0.00-0.045)
[2020-05-03 05:23] LABS: Band Neutrophils 2 % (0-10); Lymphocytes 4 % (20-55); Platelet Estimate Adequate; Segmented Neutrophils 93 % (50-85); Total Cells Counted 100
[2020-05-03 05:28] LABS: Albumin 3.6 G/DL (3.4-5.0); Bilirubin,Direct 0.46 MG/DL (0.0-0.20); Bilirubin,Total 1.3 MG/DL (0.2-1.0); Calcium 8.3 MG/DL (8.5-10.1); Osmolality,Calculated 291.8 MOS/KG (273-304); Total Protein 5.7 G/DL (6.4-8.3)
[2020-05-03 05:41] LABS: ABG Base Excess -0.6 MMOL/L (-2.5-2.5); ABG HCO3 23.9 MMOL/L (20-26); ABG Oxygen Saturation 97.2 % (95-100); ABG PCO2 36.4 MM HG (35-48); ABG PH 7.418 (7.35-7.45); ABG PO2 85.8 MM HG (80-95); Glucose Heart Surgery 164 MG/DL (74-106); Hematocrit Heart Surgery 35.1 PERCENT (42-52); Hemoglobin Heart Surgery 11.4 G/DL (14.0-18.0); Potassium Heart/CVR 3.9 MMOL/L (3.5-5.1)
[2020-05-03] MEDS: POTASSIUM CHLORIDE RIDER 20 MEQ in PREMIX 1 EACH IV PRN (05:43)
[2020-05-03 06:27] LABS: ABG Base Excess -1.2 MMOL/L (-2.5-2.5); ABG HCO3 24.1 MMOL/L (20-26); ABG Oxygen Saturation 97.3 % (95-100); ABG PCO2 42.6 MM HG (35-48); ABG PH 7.371 (7.35-7.45); ABG PO2 112.8 MM HG (80-95); ABG TCO2 25.4 MMOL/L (23-27); Glucose Heart Surgery 154 MG/DL (74-106); Hemoglobin Heart Surgery 11.7 G/DL (14.0-18.0); Potassium Heart/CVR 4.2 MMOL/L (3.5-5.1)
[2020-05-03] MEDS: ALBUMIN 5% 12.5 GM in PREMIX 1 EACH IV PRN (06:55)
[2020-05-03] MEDS: CEFUROXIME INJ 1,500 MG in SYRINGE 1 EACH IV SCH ×2 (07:05→18:25)
[2020-05-03] MEDS: LACTATED RINGERS 250 ML IV PRN (07:11)
[2020-05-03 08:10] LABS: ABG Base Excess -1.5 MMOL/L (-2.5-2.5); ABG Oxygen Saturation 94.2 % (95-100); ABG PO2 74.5 MM HG (80-95); ABG TCO2 24.2 MMOL/L (23-27); Glucose Heart Surgery 129 MG/DL (74-106); Hemoglobin Heart Surgery 11.1 G/DL (14.0-18.0); Potassium Heart/CVR 3.9 MMOL/L (3.5-5.1)
[2020-05-03] MEDS: CHLORHEXIDINE 0.12% ORAL RINSE 60 ML BOTTLE SWISH/SPIT SCH ×2 (10:21→21:25)
[2020-05-03] MEDS: PHENYLEPHRINE DRIP 40 MG/250 ML PREMIX IV PRN (10:21)
[2020-05-03 11:56] LABS: CKMB % 4.2 %
[2020-05-03 11:57] LABS: Troponin I 3.6 NG/ML (0.00-0.045)
[2020-05-03] MEDS: SODIUM CHLORIDE 0.45% 1,000 ML IV SCH ×2 (14:56)
[2020-05-03] MEDS: INSULIN REGULAR 100 UNIT/ML SUBCUT SCH ×3 (14:56→21:26)
[2020-05-03] MEDS: ASCORBIC ACID 500 MG TABLET PO SCH ×2 (15:14→21:25)
[2020-05-03] MEDS: PANTOPRAZOLE 40 MG TABLET PO SCH (15:14)
[2020-05-03] MEDS ORDERED: HALOPERIDOL 5 MG/ML AMP IV PRN (16:50)
[2020-05-03] MEDS ORDERED: HALOPERIDOL 5 MG/ML AMP IV ONE (18:17)
[2020-05-03] MEDS: KETOROLAC 30 MG/1 ML VIAL IV SCH (18:27)
[2020-05-04] MEDS: KETOROLAC 30 MG/1 ML VIAL IV SCH ×5 (00:53→23:46)
[2020-05-04] MEDS: INSULIN REGULAR 100 UNIT/ML SUBCUT SCH ×6 (01:47→23:46)
[2020-05-04 06:53] LABS: Basophils % 0.1 % (0.0-0.8); Hematocrit 28.6 VOL% (42.0-52.0); Hemoglobin 9.6 GM/DL (14.0-18.0); Immature Granulocytes % 1.5 %; Immature Granulocytes Absolute 0.16 #; Lymphocytes # 0.6 10*3/uL (1.4-4.0); Lymphocytes % 5.3 % (21.2-54.2); Mean Corpuscular HGB Conc 33.6 GM/DL (32-36); Mean Platelet Volume 11.1 FL (9.6-12.0); Neutrophils % 85.1 % (38.7-73.9); Platelet Count 69 T/CUMM (130-400); Red Blood Count 3.01 MC/CUMM (3.8-5.5); Red Cell Distribution Width 13.7 % (9.3-17.3); White Blood Count 10.7 T/CUMM (4-12)
[2020-05-04 07:36] LABS: Hypochromasia 1+; Lymphocytes 5 % (20-55); Microcytosis Slight; Platelet Estimate Decreased; Segmented Neutrophils 89 % (50-85); Total Cells Counted 100
[2020-05-04 07:37] LABS: CKMB % 1.1 %; Troponin I 2.99 NG/ML (0.00-0.045)
[2020-05-04] MEDS: SODIUM CHLORIDE 0.45% 1,000 ML IV SCH ×4 (07:50→11:20)
[2020-05-04 08:41] LABS: Albumin 3.3 G/DL (3.4-5.0); Bilirubin,Direct 0.272 MG/DL (0.0-0.20); Bilirubin,Total 1.04 MG/DL (0.2-1.0); Calcium 8.4 MG/DL (8.5-10.1); Total Protein 5.8 G/DL (6.4-8.3)
[2020-05-04 08:42] LABS: Osmolality,Calculated 297.3 MOS/KG (273-304)
[2020-05-04] MEDS: CHLORHEXIDINE 0.12% ORAL RINSE 60 ML BOTTLE SWISH/SPIT SCH ×3 (08:49→21:16)
[2020-05-04] MEDS: ASPIRIN EC 325 MG TABLET PO SCH (08:50)
[2020-05-04] MEDS: PANTOPRAZOLE 40 MG TABLET PO SCH (08:50)
[2020-05-04] MEDS: ASCORBIC ACID 500 MG TABLET PO SCH ×2 (08:50→21:10)
[2020-05-04 09:47] LABS: Calcium 8.2 MG/DL (8.5-10.1); Osmolality,Calculated 296.3 MOS/KG (273-304)
[2020-05-04] MEDS ORDERED: ZALEPLON 5 MG CAPSULE PO PRN (12:46)
[2020-05-04] MEDS ORDERED: oxyCODONE/ACETAMINOPHEN 5-325 MG TABLET PO PRN (12:46)
[2020-05-04] MEDS ORDERED: PANTOPRAZOLE 40 MG TABLET PO SCH (12:46)
[2020-05-04] MEDS ORDERED: ONDANSETRON 4 MG/2 ML VIAL IV PRN (12:46)
[2020-05-04] MEDS ORDERED: DEXTROSE 50% 25 GM/50 ML VIAL IV PRN (12:46)
[2020-05-04] MEDS ORDERED: MAGNESIUM SULF RIDER 4 GM in PREMIX 1 EACH IV PRN (12:46)
[2020-05-04] MEDS ORDERED: ALUMINUM/MAGNES/SIMETH MAX STR 30 ML UDCUP PO PRN (12:46)
[2020-05-04] MEDS ORDERED: GLUCAGON 1 MG VIAL IM PRN (12:46)
[2020-05-04] MEDS ORDERED: MAGNESIUM HYDROXIDE SUSP 30 ML UDCUP PO PRN (12:46)
[2020-05-04] MEDS ORDERED: MAGNESIUM SULF RIDER 2 GM in PREMIX 1 EACH IV PRN (12:46)
[2020-05-04] MEDS ORDERED: ACETAMINOPHEN 325 MG TABLET PO PRN (12:46)
[2020-05-04] MEDS ORDERED: SODIUM CHLOR 0.45% KCL 20 MEQ 20 MEQ/1,000 ML BAG IV SCH (12:46)
[2020-05-04] MEDS: FERROUS SULFATE 325 MG TABLET PO SCH (13:08)
[2020-05-04] MEDS: DOCUSATE SODIUM 100 MG CAPSULE PO SCH (13:08)
[2020-05-04] MEDS: ATORVASTATIN 40 MG TABLET PO SCH (21:10)
[2020-05-05] MEDS: INSULIN REGULAR 100 UNIT/ML SUBCUT SCH ×5 (04:00→20:57)
[2020-05-05 05:56] LABS: Basophils % 0.1 % (0.0-0.8); Eosinophils % 0.5 % (0.00-10.9); Hematocrit 27.6 VOL% (42.0-52.0); Hemoglobin 9.4 GM/DL (14.0-18.0); Immature Granulocytes Absolute 0.08 #; Lymphocytes # 0.9 10*3/uL (1.4-4.0); Lymphocytes % 11.5 % (21.2-54.2); Mean Corpuscular HGB Conc 34.1 GM/DL (32-36); Mean Corpuscular Volume 95.5 FL (87-102); Mean Platelet Volume 12.1 FL (9.6-12.0); Monocytes % 10.8 % (1.7-12.7); Neutrophils % 76.1 % (38.7-73.9); Platelet Count 69 T/CUMM (130-400); Red Blood Count 2.89 MC/CUMM (3.8-5.5); Red Cell Distribution Width 13.5 % (9.3-17.3)
[2020-05-05] MEDS ORDERED: FUROSEMIDE 40 MG/4 ML VIAL IV ONE (06:00)
[2020-05-05] MEDS: KETOROLAC 30 MG/1 ML VIAL IV SCH ×3 (06:13→17:57)
[2020-05-05 06:15] LABS: Albumin 3.1 G/DL (3.4-5.0); Bilirubin,Direct 0.3 MG/DL (0.0-0.20); Bilirubin,Total 0.9 MG/DL (0.2-1.0); Calcium 8.3 MG/DL (8.5-10.1); Total Protein 5.7 G/DL (6.4-8.3)
[2020-05-05 06:17] LABS: Calcium 8.2 MG/DL (8.5-10.1); Osmolality,Calculated 296.1 MOS/KG (273-304)
[2020-05-05 06:20] LABS: Alanine Aminotransferase 24 U/L (16-61); Albumin 3.3 G/DL (3.4-5.0); Alkaline Phosphatase 44 U/L (45-117); Aspartate Amino Transferase 29 U/L (0-37); Bilirubin,Indirect 0.8 MG/DL (0.0-1.0); Total Protein 5.7 G/DL (6.4-8.3)
[2020-05-05 06:55] LABS: Anisocytosis 1+; Platelet Estimate Decreased; Spherocytes Few
[2020-05-05] MEDS ORDERED: POTASSIUM CHLORIDE 20 MEQ TABLET PO ONE (07:59)
[2020-05-05] MEDS: ALBUTEROL 0.63 MG/3 ML NEB RESP TX SCH ×3 (08:30→19:33)
[2020-05-05] MEDS: glipiZIDE 10 MG TABLET PO SCH (09:12)
[2020-05-05] MEDS: METOPROLOL TARTRATE 25 MG TABLET PO SCH ×2 (09:13→20:57)
[2020-05-05] MEDS: PANTOPRAZOLE 40 MG TABLET PO SCH (09:13)
[2020-05-05] MEDS: FERROUS SULFATE 325 MG TABLET PO SCH (09:13)
[2020-05-05] MEDS: ASPIRIN EC 325 MG TABLET PO SCH (09:13)
[2020-05-05] MEDS: ASCORBIC ACID 500 MG TABLET PO SCH ×2 (09:14→20:57)
[2020-05-05] MEDS: DOCUSATE SODIUM 100 MG CAPSULE PO SCH (09:14)
[2020-05-05] MEDS: CHLORHEXIDINE 0.12% ORAL RINSE 60 ML BOTTLE SWISH/SPIT SCH ×2 (09:19→20:57)
[2020-05-05] MEDS: ATORVASTATIN 40 MG TABLET PO SCH (20:57)
[2020-05-06] MEDS: ALBUTEROL 0.63 MG/3 ML NEB RESP TX SCH ×4 (00:21→19:12)
[2020-05-06] MEDS: KETOROLAC 30 MG/1 ML VIAL IV SCH ×5 (01:13→17:30)
[2020-05-06] MEDS: INSULIN REGULAR 100 UNIT/ML SUBCUT SCH ×6 (01:19→22:09)
[2020-05-06 04:15] LABS: Basophils % 0.2 % (0.0-0.8); Eosinophils # 0.2 10*3/uL (0.0-0.87); Hematocrit 27.3 VOL% (42.0-52.0); Hemoglobin 9.1 GM/DL (14.0-18.0); Immature Granulocytes % 1.1 %; Immature Granulocytes Absolute 0.07 #; Lymphocytes # 0.9 10*3/uL (1.4-4.0); Lymphocytes % 14.6 % (21.2-54.2); Mean Corpuscular HGB Conc 33.3 GM/DL (32-36); Mean Corpuscular Volume 96.1 FL (87-102); Mean Platelet Volume 11.7 FL (9.6-12.0); Monocytes % 9.7 % (1.7-12.7); Neutrophils % 71.4 % (38.7-73.9); Platelet Count 80 T/CUMM (130-400); Red Blood Count 2.84 MC/CUMM (3.8-5.5); White Blood Count 6.3 T/CUMM (4-12)
[2020-05-06 04:42] LABS: Alanine Aminotransferase 32 U/L (16-61); Alkaline Phosphatase 46 U/L (45-117); Aspartate Amino Transferase 26 U/L (0-37); Bilirubin,Indirect 0.6 MG/DL (0.0-1.0); Blood Urea Nitrogen 47 MG/DL (7-18); Calcium 8.4 MG/DL (8.5-10.1); Estimated Glom Filtration Rate 65 ML/MIN; Glucose 121 MG/DL (74-106); Osmolality,Calculated 295.1 MOS/KG (273-304); Total Protein 5.7 G/DL (6.4-8.3)
[2020-05-06 06:06] LABS: Eosinophils 4 % (0-10); Lymphocytes 14 % (20-55); Segmented Neutrophils 76 % (50-85)
[2020-05-06 06:07] LABS: Platelet Estimate Decreased; Total Cells Counted 100
[2020-05-06] MEDS ORDERED: POTASSIUM CHLORIDE 20 MEQ TABLET PO ONE (06:31)
[2020-05-06] MEDS: ASCORBIC ACID 500 MG TABLET PO SCH ×2 (08:55→22:09)
[2020-05-06] MEDS: glipiZIDE 10 MG TABLET PO SCH (08:55)
[2020-05-06] MEDS: METOPROLOL TARTRATE 50 MG TABLET PO SCH ×2 (08:55→22:09)
[2020-05-06] MEDS: PANTOPRAZOLE 40 MG TABLET PO SCH (08:56)
[2020-05-06] MEDS: ASPIRIN EC 325 MG TABLET PO SCH (08:56)
[2020-05-06] MEDS: FERROUS SULFATE 325 MG TABLET PO SCH (08:56)
[2020-05-06] MEDS: DOCUSATE SODIUM 100 MG CAPSULE PO SCH (08:56)
[2020-05-06] MEDS ORDERED: METOPROLOL TARTRATE 25 MG TABLET PO SCH (09:00)
[2020-05-06] MEDS: POTASSIUM CHLORIDE 20 MEQ TABLET PO PRN ×2 (09:07→11:15)
[2020-05-06] MEDS: CHLORHEXIDINE 0.12% ORAL RINSE 60 ML BOTTLE SWISH/SPIT SCH ×2 (09:14→22:10)
[2020-05-06] MEDS: ATORVASTATIN 40 MG TABLET PO SCH (22:09)
[2020-05-07] MEDS: ALBUTEROL 0.63 MG/3 ML NEB RESP TX SCH ×4 (00:18→20:43)
[2020-05-07] MEDS: KETOROLAC 30 MG/1 ML VIAL IV SCH ×4 (01:59→17:49)
[2020-05-07] MEDS: INSULIN REGULAR 100 UNIT/ML SUBCUT SCH ×6 (02:01→21:34)
[2020-05-07 05:49] LABS: Basophils % 0.2 % (0.0-0.8); Eosinophils # 0.3 10*3/uL (0.0-0.87); Eosinophils % 5.4 % (0.00-10.9); Hematocrit 28.5 VOL% (42.0-52.0); Hemoglobin 9.4 GM/DL (14.0-18.0); Immature Granulocytes Absolute 0.06 #; Lymphocytes # 0.8 10*3/uL (1.4-4.0); Lymphocytes % 12.7 % (21.2-54.2); Mean Corpuscular Volume 97.6 FL (87-102); Mean Platelet Volume 12.1 FL (9.6-12.0); Monocytes % 11.3 % (1.7-12.7); Neutrophils % 69.4 % (38.7-73.9); Platelet Count 96 T/CUMM (130-400); Red Blood Count 2.92 MC/CUMM (3.8-5.5); Red Cell Distribution Width 12.8 % (9.3-17.3); White Blood Count 6.1 T/CUMM (4-12)
[2020-05-07 06:13] LABS: Platelet Estimate Decreased
[2020-05-07 06:14] LABS: Anisocytosis 2+; Macrocytosis Slight
[2020-05-07 06:17] LABS: Calcium 9.3 MG/DL (8.5-10.1)
[2020-05-07] MEDS: ASCORBIC ACID 500 MG TABLET PO SCH ×2 (08:48→21:35)
[2020-05-07] MEDS: glipiZIDE 10 MG TABLET PO SCH (08:48)
[2020-05-07] MEDS: DOCUSATE SODIUM 100 MG CAPSULE PO SCH (08:48)
[2020-05-07] MEDS: ASPIRIN EC 325 MG TABLET PO SCH (08:49)
[2020-05-07] MEDS: PANTOPRAZOLE 40 MG TABLET PO SCH (08:49)
[2020-05-07] MEDS: FERROUS SULFATE 325 MG TABLET PO SCH (08:49)
[2020-05-07] MEDS: METOPROLOL TARTRATE 50 MG TABLET PO SCH ×2 (08:49→21:35)
[2020-05-07] MEDS: CHLORHEXIDINE 0.12% ORAL RINSE 60 ML BOTTLE SWISH/SPIT SCH ×2 (08:53→21:35)
[2020-05-07] MEDS: POLYMYXIN BOTH EYES SCH ×3 (13:51→21:34)
[2020-05-07] MEDS: NEOMYCIN BOTH EYES SCH ×3 (13:51→21:34)
[2020-05-07] MEDS: [UNRECOGNIZED DRUG - OTHER] BOTH EYES SCH ×3 (13:51→21:34)
[2020-05-07] MEDS ORDERED: SPIRONOLACTONE 25 MG TABLET PO ONE (18:22)
[2020-05-07] MEDS: ATORVASTATIN 40 MG TABLET PO SCH (21:35)
[2020-05-08] MEDS: ALBUTEROL 0.63 MG/3 ML NEB RESP TX SCH ×4 (01:32→18:46)
[2020-05-08] MEDS: INSULIN REGULAR 100 UNIT/ML SUBCUT SCH ×6 (02:12→21:34)
[2020-05-08] MEDS: KETOROLAC 30 MG/1 ML VIAL IV SCH (02:13)
[2020-05-08 04:48] LABS: Basophils % 0.3 % (0.0-0.8); Eosinophils # 0.4 10*3/uL (0.0-0.87); Eosinophils % 5.6 % (0.00-10.9); Hematocrit 28.5 VOL% (42.0-52.0); Hemoglobin 9.5 GM/DL (14.0-18.0); Immature Granulocytes % 1.3 %; Lymphocytes % 13.3 % (21.2-54.2); Mean Corpuscular HGB Conc 33.3 GM/DL (32-36); Mean Platelet Volume 11.8 FL (9.6-12.0); Monocytes % 11.1 % (1.7-12.7); Neutrophils % 68.4 % (38.7-73.9); Platelet Count 110 T/CUMM (130-400); Red Blood Count 2.97 MC/CUMM (3.8-5.5); Red Cell Distribution Width 12.7 % (9.3-17.3); White Blood Count 7.7 T/CUMM (4-12)
[2020-05-08 05:20] LABS: Osmolality,Calculated 284.5 MOS/KG (273-304)
[2020-05-08 05:28] LABS: Alanine Aminotransferase 33 U/L (16-61); Albumin 2.9 G/DL (3.4-5.0); Alkaline Phosphatase 53 U/L (45-117); Aspartate Amino Transferase 21 U/L (0-37); Bilirubin,Indirect 0.9 MG/DL (0.0-1.0); Blood Urea Nitrogen 32 MG/DL (7-18); Calcium 8.7 MG/DL (8.5-10.1); Estimated Glom Filtration Rate 71 ML/MIN; Glucose 119 MG/DL (74-106); Osmolality,Calculated 286.4 MOS/KG (273-304)
[2020-05-08 05:31] LABS: Troponin I 0.318 NG/ML (0.00-0.045)
[2020-05-08] MEDS ORDERED: FUROSEMIDE 40 MG/4 ML VIAL IV ONE (08:07)
[2020-05-08] MEDS ORDERED: ASPIRIN EC 81 MG TABLET PO SCH (09:02)
[2020-05-08] MEDS: ASPIRIN EC 325 MG TABLET PO SCH (09:22)
[2020-05-08] MEDS: glipiZIDE 10 MG TABLET PO SCH (09:25)
[2020-05-08] MEDS: FERROUS SULFATE 325 MG TABLET PO SCH (09:25)
[2020-05-08] MEDS: SPIRONOLACTONE 25 MG TABLET PO SCH (09:25)
[2020-05-08] MEDS: OXYBUTYNIN XL 15 MG TABLET PO SCH (09:25)
[2020-05-08] MEDS: ASPIRIN EC 81 MG TABLET PO SCH (09:25)
[2020-05-08] MEDS: ASCORBIC ACID 500 MG TABLET PO SCH ×2 (09:25→21:35)
[2020-05-08] MEDS: DOCUSATE SODIUM 100 MG CAPSULE PO SCH (09:25)
[2020-05-08] MEDS: PANTOPRAZOLE 40 MG TABLET PO SCH (09:25)
[2020-05-08] MEDS: APIXABAN 5 MG TABLET PO SCH ×2 (09:25→21:35)
[2020-05-08] MEDS: AMIODARONE 200 MG TABLET PO SCH ×2 (09:25→21:35)
[2020-05-08] MEDS: NEOMYCIN BOTH EYES SCH ×4 (09:26→21:36)
[2020-05-08] MEDS: [UNRECOGNIZED DRUG - OTHER] BOTH EYES SCH ×4 (09:26→21:36)
[2020-05-08] MEDS: POLYMYXIN BOTH EYES SCH ×4 (09:26→21:36)
[2020-05-08] MEDS: CHLORHEXIDINE 0.12% ORAL RINSE 60 ML BOTTLE SWISH/SPIT SCH ×2 (09:26→21:36)
[2020-05-08] MEDS ORDERED: glipiZIDE 10 MG TABLET PO SCH (12:59)
[2020-05-08] MEDS: ATORVASTATIN 40 MG TABLET PO SCH (21:35)
[2020-05-09] MEDS: INSULIN REGULAR 100 UNIT/ML SUBCUT SCH (00:38)
[2020-05-09] MEDS: ALBUTEROL 0.63 MG/3 ML NEB RESP TX SCH ×2 (01:09→07:15)
[2020-05-09 05:14] LABS: Basophils % 0.4 % (0.0-0.8); Eosinophils # 0.4 10*3/uL (0.0-0.87); Eosinophils % 4.8 % (0.00-10.9); Hematocrit 27.2 VOL% (42.0-52.0); Hemoglobin 9.2 GM/DL (14.0-18.0); Immature Granulocytes % 1.7 %; Immature Granulocytes Absolute 0.13 #; Mean Corpuscular HGB Conc 33.8 GM/DL (32-36); Mean Corpuscular Volume 95.1 FL (87-102); Monocytes % 11.1 % (1.7-12.7); Platelet Count 125 T/CUMM (130-400); Red Blood Count 2.86 MC/CUMM (3.8-5.5); Red Cell Distribution Width 12.3 % (9.3-17.3); White Blood Count 7.7 T/CUMM (4-12)
[2020-05-09 05:50] LABS: Calcium 8.6 MG/DL (8.5-10.1); Osmolality,Calculated 287.4 MOS/KG (273-304)
[2020-05-09 06:12] LABS: Alanine Aminotransferase 34 U/L (16-61); Albumin 2.6 G/DL (3.4-5.0); Alkaline Phosphatase 52 U/L (45-117); Aspartate Amino Transferase 21 U/L (0-37); Blood Urea Nitrogen 29 MG/DL (7-18); Calcium 8.5 MG/DL (8.5-10.1); Estimated Glom Filtration Rate 65 ML/MIN; Glucose 131 MG/DL (74-106); Osmolality,Calculated 284.5 MOS/KG (273-304); Total Protein 5.7 G/DL (6.4-8.3)
[2020-05-09 06:13] LABS: Troponin I 0.182 NG/ML (0.00-0.045)
[2020-05-09] MEDS ORDERED: INSULIN REGULAR 100 UNIT/ML SUBCUT SCH (07:30)
[2020-05-09] MEDS ORDERED: glipiZIDE 10 MG TABLET PO SCH (09:00)
[2020-05-09] MEDS ORDERED: FUROSEMIDE 20 MG TABLET PO SCH (09:00)
[2020-05-09] MEDS: APIXABAN 5 MG TABLET PO SCH (09:39)
[2020-05-09] MEDS: DOCUSATE SODIUM 100 MG CAPSULE PO SCH (09:39)
[2020-05-09] MEDS: AMIODARONE 200 MG TABLET PO SCH (09:40)
[2020-05-09] MEDS: SPIRONOLACTONE 25 MG TABLET PO SCH (09:40)
[2020-05-09] MEDS: FERROUS SULFATE 325 MG TABLET PO SCH (09:40)
[2020-05-09] MEDS: ASPIRIN EC 81 MG TABLET PO SCH (09:40)
[2020-05-09] MEDS: ASCORBIC ACID 500 MG TABLET PO SCH (09:40)
[2020-05-09] MEDS: PANTOPRAZOLE 40 MG TABLET PO SCH (09:41)
[2020-05-09] MEDS: OXYBUTYNIN XL 15 MG TABLET PO SCH (09:41)
[2020-05-09] MEDS: CHLORHEXIDINE 0.12% ORAL RINSE 60 ML BOTTLE SWISH/SPIT SCH (09:45)
[2020-05-09] MEDS: NEOMYCIN BOTH EYES SCH (09:46)
[2020-05-09] MEDS: [UNRECOGNIZED DRUG - OTHER] BOTH EYES SCH (09:46)
[2020-05-09] MEDS: POLYMYXIN BOTH EYES SCH (09:46)
[2020-05-09 11:45] VITALS: BP 135/58
== END 2020-05-09 11:47 | disposition home health service (06) | DRG 236 ==
LOC: N.ADMINP 08:54 → N.CVR 05-02 10:52 → N.ICU 05-03 14:27 → N.TELES 05-04 18:16

== ENCOUNTER 2021-05-14 10:05 | Observation (INO) ==
[2021-05-14 11:52] LABS: Basophils % 0.3 % (0.0-0.8); Eosinophils % 0.8 % (0.00-10.9); Hemoglobin 11.5 GM/DL (14.0-18.0); Immature Granulocytes % 0.8 %; Immature Granulocytes Absolute 0.03 #; Lymphocytes # 0.7 10*3/uL (1.4-4.0); Lymphocytes % 16.6 % (21.2-54.2); Mean Corpuscular HGB Conc 32.9 GM/DL (32-36); Mean Corpuscular Volume 97.2 FL (87-102); Mean Platelet Volume 10.7 FL (9.6-12.0); Monocytes % 9.8 % (1.7-12.7); Neutrophils % 71.7 % (38.7-73.9); Platelet Count 112 T/CUMM (130-400); Red Cell Distribution Width 13.2 % (9.3-17.3)
[2021-05-14 12:49] LABS: Albumin 3.4 G/DL (3.4-5.0); Bilirubin,Total 0.6 MG/DL (0.20-1.00); Calcium 9.1 MG/DL (8.5-10.1); Osmolality,Calculated 285.5 MOS/KG (273-304); Total Protein 6.6 G/DL (6.4-8.2)
[2021-05-14 12:57] LABS: Sedimentation Rate-Westergren 30 MM/HR (0-20)
[2021-05-14] MEDS ORDERED: GLUCAGON 1 MG VIAL IM PRN ×2 (14:40)
[2021-05-14] MEDS ORDERED: DEXTROSE 50% 25 GM/50 ML VIAL IV PRN ×2 (14:40)
[2021-05-14] MEDS ORDERED: ENOXAPARIN 30 MG/0.3 ML SYRINGE SUBCUT SCH (15:00)
[2021-05-14] MEDS ORDERED: INFLUENZA VIRUS VACCINE 0.5 ML SYRINGE IM ONE (16:39)
[2021-05-14] MEDS: INSULIN LISPRO 100 UNIT/ML SUBCUT SCH ×2 (16:43→21:54)
[2021-05-14] MEDS: predniSONE 20 MG TABLET PO SCH (17:41)
[2021-05-14] MEDS ORDERED: ATORVASTATIN 40 MG TABLET PO SCH (21:00)
[2021-05-14] MEDS ORDERED: FERROUS SULFATE 325 MG TABLET PO SCH (21:00)
[2021-05-14] MEDS: APIXABAN 5 MG TABLET PO SCH (21:42)
[2021-05-15 04:30] LABS: Basophils % 0.2 % (0.0-0.8); Eosinophils % 0.2 % (0.00-10.9); Hematocrit 39.2 VOL% (42.0-52.0); Hemoglobin 12.9 GM/DL (14.0-18.0); Immature Granulocytes % 1.1 %; Immature Granulocytes Absolute 0.06 #; Lymphocytes # 0.5 10*3/uL (1.4-4.0); Mean Corpuscular HGB Conc 32.9 GM/DL (32-36); Mean Corpuscular Volume 96.3 FL (87-102); Mean Platelet Volume 10.8 FL (9.6-12.0); Monocytes % 1.8 % (1.7-12.7); Neutrophils % 87.7 % (38.7-73.9); Red Blood Count 4.07 MC/CUMM (3.8-5.5)
[2021-05-15 04:41] LABS: Platelet Count 116 T/CUMM (130-400); White Blood Count 5.7 T/CUMM (4-12)
[2021-05-15 04:52] LABS: Hypochromasia 1+; Microcytosis 1+; Platelet Estimate Decreased
[2021-05-15 05:09] LABS: Albumin 3.4 G/DL (3.4-5.0); Bilirubin,Total 0.8 MG/DL (0.20-1.00); Calcium 9.1 MG/DL (8.5-10.1); Osmolality,Calculated 277.1 MOS/KG (273-304); Potassium 4.7 MMOL/L (3.5-5.1); Risk Ratio 2.16; Thyroid Stimulating Hormone 0.892 uIU/ml (0.358-3.74); Total Protein 6.9 G/DL (6.4-8.2); VLDL Cholesterol 7.8 MG/DL
[2021-05-15] MEDS: predniSONE 20 MG TABLET PO SCH (08:20)
[2021-05-15] MEDS: APIXABAN 5 MG TABLET PO SCH (08:21)
[2021-05-15] MEDS: INSULIN LISPRO 100 UNIT/ML SUBCUT SCH ×2 (08:27→13:08)
[2021-05-15] MEDS ORDERED: PANTOPRAZOLE 40 MG TABLET PO SCH (09:00)
[2021-05-15] MEDS ORDERED: ASPIRIN EC 81 MG TABLET PO SCH (09:00)
[2021-05-15] MEDS ORDERED: CLOPIDOGREL 75 MG TABLET PO SCH (09:00)
[2021-05-15] MEDS ORDERED: LOSARTAN 25 MG TABLET PO PRN (11:53)
[2021-05-15 12:13] VITALS: BP 163/61
[2021-05-15] MEDS ORDERED: allopurinoL 100 MG TABLET PO SCH (15:00)
[2021-05-15] MEDS ORDERED: cloNIDine 0.1 MG TABLET PO SCH (15:00)
[2021-05-15] MEDS ORDERED: ISOSORBIDE MONONITRATE 20 MG TABLET PO SCH (15:00)
[2021-05-15] MEDS ORDERED: SPIRONOLACTONE 25 MG TABLET PO SCH (15:00)
[2021-05-15] MEDS ORDERED: GABAPENTIN 100 MG CAPSULE PO SCH (21:00)
[2021-05-15] MEDS ORDERED: TERAZOSIN 10 MG CAPSULE PO SCH (21:00)
[2021-05-15] MEDS ORDERED: carBAMazepine 200 MG TABLET PO SCH (21:00)
== END 2021-05-15 15:50 | disposition home or self-care (01) ==
LOC: N.ED 10:05 → N.EDINP 10:05 → N.5E 16:00
PROVIDERS: ADMIT Internal Medicine; ATTEND Internal Medicine